=== PATIENT | female | born 1940 | race Caucasian/White ===

== ENCOUNTER 2022-02-12 14:18 | Outpatient (REF) | payer MEDICARE, OTHER, SELFPAY ==
[2022-02-12 14:47] LABS: MANUAL DIFF FLAG NO
[2022-02-12 14:55] LABS: Basophils Absolute Auto 0.1 X10*3/uL (0.0-0.2); Eosinophils Absolute Auto 0.2 X10*3/uL (0.0-0.4); Eosinophils Percent Auto 3.9 % (0-4); Hematocrit 36.3 % (37.0-47.0); Hemoglobin 12.1 g/dl (12.0-16.0); Imm Gran Abs Auto 0.01 X10*3/uL (0.00-0.03); Imm Gran Pct Auto 0.2 % (0.0-0.4); Lymphocytes Absolute Auto 1.1 X10*3/uL (1.2-4.9); Lymphocytes Percent Auto 22.5 % (20-40); Mean Corpuscular HGB Conc 33.3 g/dl (31.0-35.0); Mean Corpuscular Hemoglobin 29.9 pg (27.0-33.0); Mean Corpuscular Volume 89.6 fL (80.0-98.0); Mean Platelet Volume 11.2 fL (9.4-12.3); Monocytes Absolute Auto 0.4 X10*3/uL (0.1-1.2); Monocytes Percent Auto 8.5 % (2-11); Neutrophils Absolute Auto 3.1 x10*3/uL (2.0-8.3); Neutrophils Percent Auto 63.9 % (45-73); Platelet Count 216 X10*3/uL (160-400); Red Blood Count 4.05 X10*6/uL (4.20-5.50); Red Cell Distribution Width 13.9 % (11.0-16.0); White Blood Count 4.9 X10*3/uL (4.8-10.8)
[2022-02-12 15:34] LABS: Erythrocyte Sedimentation Rate 12 MM/HR (0-20)
[2022-02-18 14:57] LABS: Anti Nuclear Antibody Pattern Nuclear, Homogeneous; Anti Nuclear Antibody Screen POSITIVE (NEGATIVE)
[2022-03-04 22:26] LABS: Asperg fumigatus Precip Abs NEGATIVE (NEGATIVE); Micropoly faeni Abs NEGATIVE (NEGATIVE); Pigeon serum Abs NEGATIVE (NEGATIVE); Saccharo pora viridis Abs NEGATIVE (NEGATIVE); Thermo candidus Abs NEGATIVE (NEGATIVE); Thermoa vulgaris #1 NEGATIVE (NEGATIVE)
== END 2022-02-12 14:19 | disposition home or self-care (01) ==
LOC: HO.LAB 14:18
PROVIDERS: PCP Internal Medicine; Visit Provider Hospitalist
DX: R06.00 Dyspnea, unspecified (principal); J45.909 Unspecified asthma, uncomplicated; R91.8 Other nonspecific abnormal finding of lung field; R59.1 Generalized enlarged lymph nodes; J31.0 Chronic rhinitis
CPT/HCPCS: 36415; 82785; 85025; 85652; 86003; 86038; 86039; 86331; 86606; 86609; 99202

== ENCOUNTER → 2022-03-27 13:56 | Outpatient (BNVA) | payer MEDICARE, OTHER, SELFPAY | PROVIDERS: PCP Internal Medicine; Visit Provider Hospitalist | DX: R06.09 Other forms of dyspnea (principal); J45.20 Mild intermittent asthma, uncomplicated; R91.8 Other nonspecific abnormal finding of lung field; R59.1 Generalized enlarged lymph nodes; J84.10 Pulmonary fibrosis, unspecified | CPT/HCPCS: 99212 ==

== ENCOUNTER 2022-04-15 10:46 | Outpatient (REF) | payer MEDICARE, OTHER, SELFPAY ==
--- NOTE | ~2022-04-15 | CT_ITS ---
EXAMINATION: CT CHEST WITHOUT CONTRAST CLINICAL INFORMATION: Abnormal lung findings. COMPARISON: CT chest 12/26/2021. TECHNIQUE: Multidetector volumetric CT imaging of the chest was done. Axial MIP volume rendering provided. Sagittal and coronal reformatted images were obtained. This CT examination was performed using dose optimization techniques as appropriate, variously including the following: *Automated exposure control *Adjustment of mA and/or kV according to patient size (this includes techniques or standardized protocols for targeted exams where dose is matched to indication/reason for exam; i.e. extremities or head) *Use of iterative reconstruction technique DLP: 136 mGy-cm. FINDINGS: COUNSELING PROGRAM LEADER: Well-inflated lungs. LUNGS: The lungs are well expanded without any acute pneumonic consolidation. Previously visualized spiculated lesion in the right lower lobe is not visualized at this time. Ground-glass opacity seen in the right lower lobe have resolved. There are tiny endobronchial densities in upper lobes which are stable. Calcified granuloma right upper lobe is stable. A 2 mm nodule subpleural right lower lobe axial image 479/5 is stable. No new nodules visualized. MEDIASTINUM: Right thyroid lobe is enlarged with a hypodense nodule, stable. The left thyroid lobe is unremarkable. The trachea is slightly enlarged with normal tracheal and bronchial airway. Heart size and the great vessels are normal caliber. No pericardial effusion seen. Small shotty lymph nodes seen at the pretracheal space and aortic window. There appear benign. CORONARY ARTERY CALCIFICATION: Ofpj-jx-dquoaola coronary artery calcifications are present. PLEURA: There is no pleural effusion. No pleural mass or thickening. AXILLA: There are small shotty axillary lymph nodes. The chest wall appears unremarkable. UPPER ABDOMEN: There is a 1.9 cm simple cyst right hepatic lobe. The rest of the visualized liver, spleen, pancreas and bilateral adrenal glands are unremarkable. . OSSEOUS STRUCTURES: No aggressive lytic or sclerotic process seen. CT/CT chest wo IV con IMPRESSION: Interval resolution of spiculated lesion right lower lobe. Small endobronchial lesion in the upper lobes are stable. No new nodules seen. Prominent mediastinal and para-aortic lymph nodes are stable. Fleischner guidelines were followed.
== END 2022-04-15 10:47 | disposition home or self-care (01) ==
LOC: HO.CT 10:46
PROVIDERS: PCP Internal Medicine; Visit Provider Hospitalist
DX: R59.1 Generalized enlarged lymph nodes (principal); R91.8 Other nonspecific abnormal finding of lung field; J84.10 Pulmonary fibrosis, unspecified
CPT/HCPCS: 71250

== ENCOUNTER → 2022-06-04 10:48 | Outpatient (BNVA) | payer MEDICARE, OTHER, SELFPAY | PROVIDERS: PCP Internal Medicine; Visit Provider Hospitalist | DX: R06.09 Other forms of dyspnea (principal); J45.20 Mild intermittent asthma, uncomplicated; R91.8 Other nonspecific abnormal finding of lung field; R59.1 Generalized enlarged lymph nodes; J84.10 Pulmonary fibrosis, unspecified; G47.33 Obstructive sleep apnea (adult) (pediatric) | CPT/HCPCS: 99212 ==

== ENCOUNTER → 2022-06-11 10:49 | Outpatient (REF) | payer MEDICARE, OTHER, SELFPAY | LOC: HO.SL 10:49 | PROVIDERS: Visit Provider Hospitalist | DX: G47.33 Obstructive sleep apnea (adult) (pediatric) (principal) | CPT/HCPCS: 95806 ==

== ENCOUNTER → 2022-08-13 11:12 | Outpatient (BNVA) | payer MEDICARE, OTHER, SELFPAY | PROVIDERS: PCP Physician Assistant; Visit Provider Hospitalist | DX: J45.20 Mild intermittent asthma, uncomplicated (principal); R91.8 Other nonspecific abnormal finding of lung field; R06.09 Other forms of dyspnea; R59.1 Generalized enlarged lymph nodes; J84.10 Pulmonary fibrosis, unspecified; G47.33 Obstructive sleep apnea (adult) (pediatric); U07.1 COVID-19 | CPT/HCPCS: 99212 ==

== ENCOUNTER 2023-02-11 11:21 | Outpatient (AMB) | payer MEDICARE, OTHER, SELFPAY ==
[2023-02-11 11:25] VITALS: BP 134/70; PULSE 84; O2SAT 97; BMI 29.2
--- NOTE | 2023-02-11 11:25 | A.OFFVIS_ITS ---
Intake Vital Signs 02/11/23 11:25 Height 5 ft 3 in Weight 165 lb BMI 29.2 BP 134/70 Blood Pressure Location Lt brachial Position Sitting Pulse 84 Pulse Source Pulse Oximeter Pulse Oximetry (%) 97 Oxygen Delivery Method Room Air Intake Visit Reasons: BAUTISTA Manager Instrumentation Required: No Allergies ciprofloxacin [From Cipro] Adverse Reaction (Severe, Verified 02/11/23 11:28) Dizziness HPI HPI Comments History of Present Illness Details The patient is an 82-year-old woman with a known history of asthma and also a long history of symptoms of dyspnea. She does have dyspnea on exertion which is moderate severity. Typically worsens when she goes up 1 flight of stairs. She has had extensive workup throughout the years. She has had multiple inhalers as well to try to help with her asthma symptoms. As far as exposures he was exposed to significant amount of mold for. Her life. She has not had any recent allergy testing. In view of her significant dyspnea symptoms the patient did have a workup including CT scan of the chest that she had back in December 2021. I personally reviewed the CT scan demonstrating pulmonary nodules which appear to be inflammatory in nature primarily in the right lower lobe area. In addition to that some degree of lymphadenopathy also was noted in the mediastinum. No evidence of any significant parenchymal lung disease noted or interstitial lung disease to be concerned about or to be able to explain her symptoms. In view of the significant pulmonary nodule in the right lower lobe measuring more than 8 mm in size the patient did undergo a PET scan at [facility]. It appeared that does nodular densities resolve suggesting indeed that was inflammatory process. The patient did have an echocardiogram that was done at [facility]. There may have been some degree of relaxation impairment. During the visit we did go for brief walking oximetry. It was noted patient became significantly dyspneic when her heart rate increased to above 115. her pulse oximeter was stable throughout the ambulation. 03/27/2022 the patient is here for pulmonary follow-up visit. she is here with her daughter. The patient continues to have significant dyspnea with minimal activity. She has been concerned about doing any activity because of the symptoms. Based on her initial evaluation in her significant tachycardia we talked about having her undergo a stress test. We did reach out to her leisure studies professor. depending on that discussion we can always consider a cardiopulmonary exercise study to further address her ongoing symptoms. The patient's echocardiogram did demonstrate some diastolic dysfunction which I believe is playing a role. In addition to that the patient does have some the lying bibasilar scarring that may also may be resulting in some decrease lung compliance. Therefore, I do believe that her dyspnea symptoms may be multifactorial. The patient does have an underlying pulmonary nodule that it measures 8 mm in size in addition to the lymphadenopathy and the bibasilar scarring and therefore she should have a repeat CT scan 6 months from her last imaging study. In addition to that the patient does have underlying sleep apnea. We did review her sleep study. The patient did try CPAP and she did not tolerated whatsoever. Explained to her that indeed if she has evidence of cardiovascular risk factors then revisit in the sleep apnea condition be important in order to properly treat her cardiovascular risk and symptoms. 06/04/2022 the patient is here for a pulmonary follow-up visit. Patient has still the persistent issues with her dyspnea. Even minimal activity. Moderate severity. Although she does describe now that she she is more fatigued. She does complaint of the daytime drowsiness. She brought up the fact that she does have moderate sleep apnea and she could not tolerate the CPAP. She is wondering if she needs to give that another opportunity to see if her symptoms improved. She did follow-up with cardiology and she did undergo a nuclear stress test which is reassuring without any evidence of any ischemia or [employer] cardiac abnormalities to explain her shortness of breath. Again, pulmonary function studies also were reassuring. There also may be a component of deconditioning. The patient may be a good candidate for pulmonary rehabilitation. We also reviewed her CT scan of the chest it appears that she has interval resolution of her pulmonary density. This is reassuring. She has some minimal scarring at the bases but no evidence of any worsening disease. Her blood work was all reassuring as well. She did have a slight elevation the ROBB but her titer is low 1:80. at least compared to her previous CT scan there is no apparent worsening any interstitial lung disease at this time. The patient also complains of nasal congestion and allergies. She has tried fluticasone in the past without any significant help. Will go ahead and place her back some Zyrtec and also small dose of Singulair to make sure she can not tolerated. 08/13/2022 the patient is here for a pulmonary follow-up visit. The patient has been doing relatively well from a respiratory status. She does continue to have her dyspnea. She recently recovered from COVID-19. Fhcq-[id number] severity. The patient has underlying interstitial lung disease and now recovering from COVID. This is resulting the significant dyspnea symptoms. She has had a full cardiac workup which is been reassuring. The patient also is been having issues with sleep apnea. We did repeat her home sleep study in the patient does has a mild degree of sleep apnea. This could be treated with positional therapy as she has her significant apneas when she lays on her back. We talked about different positional therapy devices that she can consider in order for her to sleep on her sides the patient is encouraged about starting pulmonary rehabilitation. This will provide her with relief and conditioning of her ongoing dyspnea symptoms. Also, more recently she started developing significant knee pain. This has been very limiting for her. She did have an ultrasound ruling out DVT specially since he D-dimer was elevated. Her rheumatological workup was slightly abnormal and she is going to follow up with Rheumatology at this time. In the meantime since she is still recovering from COVID I will give her short course of prednisone that will probably help her respiratory status and also indirectly help her knee. 02/11/2023 the patient is here for pulmonary follow-up visit. Overall patient is doing a little better. Still having dyspnea on exertion. Mild to moderate in severity. She did go to a functional medicine specialist. She was diagnosed with chronic Lyme and also adrenal insufficiency. She is currently being evaluated and treated for that. In the meantime the patient has had a cardiac and pulmonary workup without any significant clarity for the symptoms of dyspnea. 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 Patient was supposed to start pulmonary rehab but then developed a knee injury and she could not started. Now she is doing better from the knee injury and do recommend she start the pulmonary rehab at this time. Will go ahead and request pulmonary rehab at [facility] as her preference. We did review her last CT scan of the chest which demonstrated interval improvement of the nodular density. Overall stable. Will talk about further imaging studies in the future. Right now she is also dealing with issues of dizziness. She is looking for the neurologist. 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 Pulmonary fibrosis Pulmonary nodules Social History (Updated 02/12/22 @ 13:36 by SONJA Gray) Patient Tobacco Use Status: Never used Tobacco Review of Systems Const Reports daytime sleepiness, Reports fatigue and Denies fever(s) Eyes Denies itchy eyes ENT Denies change in voice and Reports dizziness Card Denies chest pain and Reports dyspnea on exertion Resp Reports cough and Reports dyspnea on exertion GI Reports no additional complaints Musc Reports as per HPI, Reports abnormal gait, Reports arthralgias and Reports joint swelling Skin/Breast Denies rash Neuro Reports no additional complaints, Reports abnormal gait and Reports dizziness Endo Reports fatigue Aller/Immun Denies itchy eyes Physical Exam Vital Signs: Last Vital Signs Pulse 84 02/11/23 11:25 BP 134/70 02/11/23 11:25 Pulse Ox 97 02/11/23 11:25 Oxygen Delivery Method Room Air 02/11/23 11:25 BMI result Body Mass Index 29.2 Const General: comfortable HEENT Head: Yes normal to inspection Eyes General: appearance normal, both eyes and all related structures Neck Neck: Yes supple Chest Chest palpation & inspection: normal inspection of the chest Resp Effort & Inspection: normal respiratory effort Auscultation: no crackles and diminished lung sounds Cardio Rate: regular rate Rhythm: regular rhythm Heart sounds: S1 normal heart sound present and S2 normal heart sound present Extrem General: Yes no clubbing, cyanosis or edema Assessment & Plan Assessment & Plan (1) Dyspnea: Code(s): R06.00 - Dyspnea, unspecified Qualifiers: Dyspnea type: dyspnea on exertion Qualified Code(s): R06.09 - Other forms of dyspnea (2) Asthma: Code(s): J45.909 - Unspecified asthma, uncomplicated Qualifiers: Asthma complication type: uncomplicated Asthma persistence: intermittent Asthma severity: mild Qualified Code(s): J45.20 - Mild intermittent asthma, uncomplicated (3) Pulmonary nodules: Code(s): R91.8 - Other nonspecific abnormal finding of lung field (4) Lymphadenopathy: Code(s): R59.1 - Generalized enlarged lymph nodes (5) Pulmonary fibrosis: Code(s): J84.10 - Pulmonary fibrosis, unspecified (6) FARHAT (obstructive sleep apnea): Code(s): G47.33 - Obstructive sleep apnea (adult) (pediatric) (7) COVID-19: Code(s): U07.1 - COVID-19 Plan the patient's dyspnea symptoms appear to be multifactorial. The patient will benefit from pulmonary rehabilitation likely this have deconditioning. The patient will benefit from pulmonary rehabilitation. No evidence of any active cardiac disease at this time. It is reassuring that her pulmonary nodules resolved and the interstitial lung disease does not appear to be getting any worse. Recommendations: Start Pulmonary rehab at [facility] short-acting beta agonist as needed continue Singulair continue Zyrtec continue fluticasone positional sleep therapy for her sleep apnea bloodwork her consider imaging studies next year follow-up in 6 months Orders: Orders Cortisol, Free 02/11/23 R06.00 - Dyspnea, unspecified, R91.8 - Other nonspecific abnormal finding of lung field Erythrocyte Sedimentation Rate 02/11/23 R06.00 - Dyspnea, unspecified, R91.8 - Other nonspecific abnormal finding of lung field ROBB Reflex Titer and Pattern 02/11/23 R06.00 - Dyspnea, unspecified, R91.8 - Other nonspecific abnormal finding of lung field Anti DNA DS Antibody 02/11/23 R06.00 - Dyspnea, unspecified, R91.8 - Other nonspecific abnormal finding of lung field Pulmonary Rehab 02/11/23 J84.10 - Pulmonary fibrosis, unspecified, R06.00 - Dyspnea, unspecified, U09.9 - Post COVID-19 condition, unspecified Coding Level of Care Code Est Pt Level 4 (78281) Diagnoses Dyspnea R06.09 Dyspnea type: dyspnea on exertion Asthma J45.20 Asthma complication type: uncomplicated Asthma persistence: intermittent Asthma severity: mild Pulmonary nodules R91.8 Lymphadenopathy R59.1 Pulmonary fibrosis J84.10 FARHAT (obstructive sleep apnea) G47.33 COVID-19 U07.1 Time Spent (min) 19
== END 2023-02-11 11:51 | disposition home or self-care (01) ==
PROVIDERS: PCP Physician Assistant; Visit Provider Hospitalist
DX: R06.09 Other forms of dyspnea (principal); J45.20 Mild intermittent asthma, uncomplicated; R91.8 Other nonspecific abnormal finding of lung field; R59.1 Generalized enlarged lymph nodes; J84.10 Pulmonary fibrosis, unspecified; G47.33 Obstructive sleep apnea (adult) (pediatric); U07.1 COVID-19
CPT/HCPCS: 99214

== ENCOUNTER 2023-02-11 11:21 | Outpatient (REF) | payer MEDICARE, OTHER, SELFPAY ==
[2023-02-11 13:09] LABS: Erythrocyte Sedimentation Rate 13 MM/HR (0-20)
[2023-02-13 15:43] LABS: Anti DNA DS Antibody <1 IU/mL
[2023-02-19 15:54] LABS: Cortisol, Free 0.15 mcg/dL
[2023-02-19 17:28] LABS: Anti Nuclear Antibody Pattern Nuclear, Homogeneous; Anti Nuclear Antibody Screen POSITIVE (NEGATIVE)
== END 2023-02-11 11:22 | disposition home or self-care (01) ==
LOC: HO.LAB 11:21
PROVIDERS: PCP Physician Assistant; Visit Provider Hospitalist
DX: R06.09 Other forms of dyspnea (principal); J45.20 Mild intermittent asthma, uncomplicated; R91.8 Other nonspecific abnormal finding of lung field; R59.1 Generalized enlarged lymph nodes; J84.10 Pulmonary fibrosis, unspecified; G47.33 Obstructive sleep apnea (adult) (pediatric); U07.1 COVID-19
CPT/HCPCS: 36415; 82530; 85652; 86038; 86039; 86225; 99212

== ENCOUNTER 2023-08-13 13:04 | Outpatient (AMB) | payer MEDICARE, OTHER, SELFPAY ==
--- NOTE | 2023-08-13 13:09 | MHC.OFFVIS ---
Intake Vital Signs 08/13/23 13:15 Height 5 ft 3 in Weight 160 lb BMI 28.3 BP 130/70 Blood Pressure Location Lt brachial Position Sitting Pulse 72 Pulse Oximetry (%) 98 Intake Visit Reasons: BAUTISTA Allergies ciprofloxacin [From Cipro] Adverse Reaction (Severe, Verified 02/11/23 11:28) Dizziness HPI HPI Comments History of Present Illness Details The patient is an 83-year-old woman with a known history of asthma and also a long history of symptoms of dyspnea. She does have dyspnea on exertion which is moderate severity. Typically worsens when she goes up 1 flight of stairs. She has had extensive workup throughout the years. She has had multiple inhalers as well to try to help with her asthma symptoms. As far as exposures he was exposed to significant amount of mold for. Her life. She has not had any recent allergy testing. In view of her significant dyspnea symptoms the patient did have a workup including CT scan of the chest that she had back in December 2021. I personally reviewed the CT scan demonstrating pulmonary nodules which appear to be inflammatory in nature primarily in the right lower lobe area. In addition to that some degree of lymphadenopathy also was noted in the mediastinum. No evidence of any significant parenchymal lung disease noted or interstitial lung disease to be concerned about or to be able to explain her symptoms. In view of the significant pulmonary nodule in the right lower lobe measuring more than 8 mm in size the patient did undergo a PET scan at [facility]. It appeared that does nodular densities resolve suggesting indeed that was inflammatory process. The patient did have an echocardiogram that was done at [facility]. There may have been some degree of relaxation impairment. During the visit we did go for brief walking oximetry. It was noted patient became significantly dyspneic when her heart rate increased to above 115. her pulse oximeter was stable throughout the ambulation. 03/27/2022 the patient is here for pulmonary follow-up visit. she is here with her daughter. The patient continues to have significant dyspnea with minimal activity. She has been concerned about doing any activity because of the symptoms. Based on her initial evaluation in her significant tachycardia we talked about having her undergo a stress test. We did reach out to her statistical assistant. depending on that discussion we can always consider a cardiopulmonary exercise study to further address her ongoing symptoms. The patient's echocardiogram did demonstrate some diastolic dysfunction which I believe is playing a role. In addition to that the patient does have some the lying bibasilar scarring that may also may be resulting in some decrease lung compliance. Therefore, I do believe that her dyspnea symptoms may be multifactorial. The patient does have an underlying pulmonary nodule that it measures 8 mm in size in addition to the lymphadenopathy and the bibasilar scarring and therefore she should have a repeat CT scan 6 months from her last imaging study. In addition to that the patient does have underlying sleep apnea. We did review her sleep study. The patient did try CPAP and she did not tolerated whatsoever. Explained to her that indeed if she has evidence of cardiovascular risk factors then revisit in the sleep apnea condition be important in order to properly treat her cardiovascular risk and symptoms. 06/04/2022 the patient is here for a pulmonary follow-up visit. Patient has still the persistent issues with her dyspnea. Even minimal activity. Moderate severity. Although she does describe now that she she is more fatigued. She does complaint of the daytime drowsiness. She brought up the fact that she does have moderate sleep apnea and she could not tolerate the CPAP. She is wondering if she needs to give that another opportunity to see if her symptoms improved. She did follow-up with cardiology and she did undergo a nuclear stress test which is reassuring without any evidence of any ischemia or [employer] cardiac abnormalities to explain her shortness of breath. Again, pulmonary function studies also were reassuring. There also may be a component of deconditioning. The patient may be a good candidate for pulmonary rehabilitation. We also reviewed her CT scan of the chest it appears that she has interval resolution of her pulmonary density. This is reassuring. She has some minimal scarring at the bases but no evidence of any worsening disease. Her blood work was all reassuring as well. She did have a slight elevation the ROBB but her titer is low 1:80. at least compared to her previous CT scan there is no apparent worsening any interstitial lung disease at this time. The patient also complains of nasal congestion and allergies. She has tried fluticasone in the past without any significant help. Will go ahead and place her back some Zyrtec and also small dose of Singulair to make sure she can not tolerated. 08/13/2022 the patient is here for a pulmonary follow-up visit. The patient has been doing relatively well from a respiratory status. She does continue to have her dyspnea. She recently recovered from COVID-19. [id number] severity. The patient has underlying interstitial lung disease and now recovering from COVID. This is resulting the significant dyspnea symptoms. She has had a full cardiac workup which is been reassuring. The patient also is been having issues with sleep apnea. We did repeat her home sleep study in the patient does has a mild degree of sleep apnea. This could be treated with positional therapy as she has her significant apneas when she lays on her back. We talked about different positional therapy devices that she can consider in order for her to sleep on her sides the patient is encouraged about starting pulmonary rehabilitation. This will provide her with relief and conditioning of her ongoing dyspnea symptoms. Also, more recently she started developing significant knee pain. This has been very limiting for her. She did have an ultrasound ruling out DVT specially since he D-dimer was elevated. Her rheumatological workup was slightly abnormal and she is going to follow up with Rheumatology at this time. In the meantime since she is still recovering from COVID I will give her short course of prednisone that will probably help her respiratory status and also indirectly help her knee. 02/11/2023 the patient is here for pulmonary follow-up visit. Overall patient is doing a little better. Still having dyspnea on exertion. Mild to moderate in severity. She did go to a functional medicine specialist. She was diagnosed with chronic Lyme and also adrenal insufficiency. She is currently being evaluated and treated for that. In the meantime the patient has had a cardiac and pulmonary workup without any significant clarity for the symptoms of dyspnea. 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 Patient was supposed to start pulmonary rehab but then developed a knee injury and she could not started. Now she is doing better from the knee injury and do recommend she start the pulmonary rehab at this time. Will go ahead and request pulmonary rehab at [facility] as her preference. We did review her last CT scan of the chest which demonstrated interval improvement of the nodular density. Overall stable. Will talk about further imaging studies in the future. Right now she is also dealing with issues of dizziness. She is looking for the neurologist. 08/13/2023 the patient is here for a pulmonary follow-up visit. Overall the patient has been doing better overall. She has been participating in the pulmonary rehabilitation program and she is found that to be very helpful for her. She is continued to participate even after completing the week program. She is going twice a week now. The patient does have a hard time walking long distances because she does develop some back pain. She did have neck pain and back pain over the fall. She was evaluated [facility] at that point in did have a CTA. The patient did have some evidence of atelectasis although can not rule out pneumonitis/ILD. The patient is requesting inhaler to use. I do believe is a good idea for her to have 1. She also continues with respiratory medicine. I will provide her Dulera that she can start using. I did give him instructions on how to use it appropriately. The patient needs to rinse her mouth after she is she will use the inhaler for now she has any difficulties with it she will call the office. Otherwise she will follow-up in the fall of 2023. [facility] Medical History (Updated 08/14/23 @ 08:41 by Herrera Huang MD) ILD (interstitial lung disease) [id number] syndrome COVID-19 FARHAT (obstructive sleep apnea) Pulmonary fibrosis Lymphadenopathy Pulmonary nodules Dyspnea Asthma Social History (Updated 02/12/22 @ 13:36 by SONJA Gray) Patient Tobacco Use Status: Never used Tobacco Review of Systems Const Reports daytime sleepiness, Reports fatigue and Denies fever(s) Eyes Denies itchy eyes ENT Denies change in voice and Reports dizziness Card Denies chest pain and Reports dyspnea on exertion Resp Reports dyspnea on exertion GI Reports no additional complaints Musc Reports myalgias Skin/Breast Denies rash Neuro Reports no additional complaints and Reports dizziness Endo Reports fatigue Aller/Immun Denies itchy eyes Physical Exam Vital Signs: Last Vital Signs Pulse 72 08/13/23 13:15 BP 130/70 08/13/23 13:15 Pulse Ox 98 08/13/23 13:15 BMI result Body Mass Index 28.3 Const General: comfortable HEENT Head: Yes normal to inspection Eyes General: appearance normal, both eyes and all related structures Neck Neck: Yes supple Chest Chest palpation & inspection: normal inspection of the chest Resp Effort & Inspection: normal respiratory effort Auscultation: no crackles and diminished lung sounds Cardio Rate: regular rate Rhythm: regular rhythm Heart sounds: S1 normal heart sound present and S2 normal heart sound present Extrem General: Yes no clubbing, cyanosis or edema Assessment & Plan Assessment & Plan (1) Dyspnea: Code(s): R06.00 - Dyspnea, unspecified Qualifiers: Dyspnea type: dyspnea on exertion Qualified Code(s): R06.09 - Other forms of dyspnea (2) Asthma: Code(s): J45.909 - Unspecified asthma, uncomplicated Qualifiers: Asthma complication type: uncomplicated Asthma persistence: intermittent Asthma severity: mild Qualified Code(s): J45.20 - Mild intermittent asthma, uncomplicated (3) Pulmonary nodules: Code(s): R91.8 - Other nonspecific abnormal finding of lung field (4) FARHAT (obstructive sleep apnea): Code(s): G47.33 - Obstructive sleep apnea (adult) (pediatric) (5) ILD (interstitial lung disease): Comment: stable Code(s): J84.9 - Interstitial pulmonary disease, unspecified Plan Recommendations: start Dulera continue phase 3 Pulmonary rehab at [facility] short-acting beta agonist as needed continue Singulair continue Zyrtec continue fluticasone positional sleep therapy for her sleep apnea consider imaging studies next year follow-up in 6 months Medications: New mometasone-formoterol 200-5 mcg/actuation (Dulera) 2 puffs inhalation Q12H 30 days 13 grams 11RF Coding Level of Care Code Est Pt Level 4 (87458) Diagnoses Dyspnea on exertion R06.09 Dyspnea type: dyspnea on exertion Mild intermittent asthma without complication J45.20 Asthma complication type: uncomplicated Asthma persistence: intermittent Asthma severity: mild Pulmonary nodules R91.8 FARHAT (obstructive sleep apnea) G47.33 ILD (interstitial lung disease) J84.9 Time Spent (min) 19
[2023-08-13 13:15] VITALS: BP 130/70; PULSE 72; O2SAT 98; BMI 28.3
== END 2023-08-13 13:34 | disposition home or self-care (01) ==
PROVIDERS: PCP Physician Assistant; Visit Provider Hospitalist
DX: R06.09 Other forms of dyspnea (principal); J45.20 Mild intermittent asthma, uncomplicated; R91.8 Other nonspecific abnormal finding of lung field; G47.33 Obstructive sleep apnea (adult) (pediatric); J84.9 Interstitial pulmonary disease, unspecified
CPT/HCPCS: 99214

== ENCOUNTER → 2023-08-13 13:04 | Outpatient (BNVA) | payer MEDICARE, OTHER, SELFPAY | PROVIDERS: PCP Physician Assistant; Visit Provider Hospitalist | DX: J45.20 Mild intermittent asthma, uncomplicated (principal); R06.09 Other forms of dyspnea; R91.8 Other nonspecific abnormal finding of lung field; G47.33 Obstructive sleep apnea (adult) (pediatric); J84.9 Interstitial pulmonary disease, unspecified | CPT/HCPCS: 99212 ==

== ENCOUNTER 2024-03-09 09:28 | Outpatient (AMB) | payer MEDICARE, OTHER, SELFPAY ==
--- NOTE | 2024-03-09 09:29 | A.OFFVIS_ITS ---
Vital Signs 03/09/24 09:30 Height 5 ft 3 in Weight 157 lb 8 oz BMI 27.9 BP 140/72 H Blood Pressure Location Lt brachial Position Sitting Pulse 73 Pulse Source Pulse Oximeter Pulse Oximetry (%) 97 Oxygen Delivery Method Room Air Intake Visit Reasons: INcreased shortness of breath Allergies ciprofloxacin [From Cipro] Adverse Reaction (Severe, Verified 03/09/24 09:33) Dizziness HPI HPI INcreased shortness of breath: Details: Renée is a pleasant 83 year old female, never smoker, with underlying asthma, FARHAT not on CPAP, and ILD. She is under the care of Dr. Huang and presents for an acute visit. She reports more noticeable dyspnea on exertion with associated intermittent coughing spells . She was started on Dulera with moderate effect however she has only been using 2 puffs in the AM. She also is requesting a rescue inhaler. She denies any fevers, chills or sick contacts. [facility] Medical History (Updated 08/14/23 @ 08:41 by Herrera Huang MD) ILD (interstitial lung disease) [id number] syndrome COVID-19 FARHAT (obstructive sleep apnea) Pulmonary fibrosis Lymphadenopathy Pulmonary nodules Dyspnea Asthma Social History Patient Tobacco Use Status: Never used Tobacco Review of Systems Const Denies chills, Denies excessive sweating, Denies fever(s), Denies headache(s) and Denies night sweats Eyes Denies dry eyes, Denies irritation and Denies itchy eyes ENT Reports Normal hearing present, Denies headache(s), Denies nasal congestion, Denies nasal discharge, Denies post nasal drip and Denies sore throat Card Denies chest pain, Denies chest pain at rest, Denies chest pain with activity, Denies claudication, Denies leg edema, Denies orthopnea and Denies paroxysmal nocturnal dyspnea Resp Denies chest congestion, Denies excessive phlegm production, Denies pain on inspiration, Denies pain with cough, Denies stridor and Denies wheezing Musc Denies myalgias Neuro Reports Normal hearing present and Denies headache(s) Endo Denies excessive sweating Salvador/Lymph Denies lymphadenopathy Aller/Immun Denies itchy eyes, Denies seasonal rhinorrhea and Denies wheezing Physical Exam Vital Signs: Last Vital Signs Pulse 73 03/09/24 09:30 BP 140/72 H 03/09/24 09:30 Pulse Ox 97 03/09/24 09:30 Oxygen Delivery Method Room Air 03/09/24 09:30 BMI result Body Mass Index 27.9 Const General: cooperative, healthy appearing, comfortable, no acute distress, well developed and alert Orientation/consciousness: patient oriented x3 Limitations: no limitations HEENT Head: Yes normal to inspection, Yes normocephalic and Yes atraumatic Ears: hearing grossly normal bilaterally and external ears normal Eyes General: appearance normal, both eyes and all related structures Eyelids: Yes eyelids normal Sclerae: sclerae normal EOM: EOMs intact bilaterally Neck Neck: Yes normal visual inspection and Yes no lymphadenopathy Lymphatic: no lymphadenopathy noted Chest Chest palpation & inspection: normal inspection of the chest Resp Effort & Inspection: normal respiratory effort, able to speak in complete sentences, no audible wheezes, no cough, no stridor, not tachypneic, no tripod positioning and no use of accessory muscles Auscultation: clear to auscultation bilaterally Cardio Jugular venous distension: no JVD Rate: regular rate Rhythm: regular rhythm Skin Other: warm, dry General skin exam: no rashes or lesions noted Neuro General: patient oriented x3 Cranial nerves: Yes Normal hearing present Cognition (Neuro): normal cognition Gait exam (Neuro): Normal gait present Extrem General: Yes normal to inspection, Yes capillary refill normal, Yes no clubbing, cyanosis or edema and Yes no pedal edema Psych Appearance: grossly normal and well kempt Speech and movement: Normal speech and movement present and Clear speech present Affect: normal affect Attitude: cooperative Thought process: Normal thought process present Thought content: Normal thought content present Insight: Good insight present (Psych) Judgement: Good judgement present (Psych) Assessment & Plan Assessment & Plan (1) Asthma: Code(s): J45.909 - Unspecified asthma, uncomplicated Category: Medical Qualifiers: Asthma complication type: uncomplicated Asthma persistence: intermittent Asthma severity: mild Qualified Code(s): J45.20 - Mild intermittent asthma, uncomplicated (2) Dyspnea: Code(s): R06.00 - Dyspnea, unspecified Category: Medical Qualifiers: Dyspnea type: dyspnea on exertion Qualified Code(s): R06.09 - Other forms of dyspnea (3) ILD (interstitial lung disease): Comment: stable Code(s): J84.9 - Interstitial pulmonary disease, unspecified Category: Medical Plan Renée present with worsening dyspnea and dry cough. Advised to increase Dulera to 2 puffs b.i.d. and will send an albuterol to use p.r.n.. She is also requesting refill on Singulair, will send this. She is aware if symptoms do not improve to call office if worsened to seek emergent care. All questions were answered and patient is in agreement of plan. Will follow-up for regularly scheduled appointment with Dr. Huang, or sooner if needed. Medications: New montelukast 10 mg PO BEDTIME 30 tabs 1RF Coding Level of Care Code Est Pt Level 3 (78827) Diagnoses Mild intermittent asthma without complication J45.20 Asthma complication type: uncomplicated Asthma persistence: intermittent Asthma severity: mild Dyspnea on exertion R06.09 Dyspnea type: dyspnea on exertion ILD (interstitial lung disease) J84.9
[2024-03-09 09:30] VITALS: BP 140/72; PULSE 73; O2SAT 97; BMI 27.9
== END 2024-03-09 11:54 | disposition home or self-care (01) ==
PROVIDERS: PCP Physician Assistant; Visit Provider Nurse Practitioner Family
DX: J45.20 Mild intermittent asthma, uncomplicated (principal); R06.09 Other forms of dyspnea; J84.9 Interstitial pulmonary disease, unspecified
CPT/HCPCS: 99213

== ENCOUNTER → 2024-03-09 09:28 | Outpatient (BNVA) | payer MEDICARE, OTHER, SELFPAY | PROVIDERS: PCP Physician Assistant; Visit Provider Nurse Practitioner Family | DX: J45.20 Mild intermittent asthma, uncomplicated (principal); J84.9 Interstitial pulmonary disease, unspecified; R06.09 Other forms of dyspnea | CPT/HCPCS: 99212 ==

== ENCOUNTER 2024-04-14 12:40 | Outpatient (AMB) | payer MEDICARE, OTHER, SELFPAY ==
[2024-04-14 12:53] VITALS: BP 146/70; PULSE 67; O2SAT 98; BMI 27.5
--- NOTE | 2024-04-14 12:53 | MHC.OFFVIS ---
Vital Signs 04/14/24 12:53 Height 5 ft 3 in Weight 155 lb BMI 27.5 BP 146/70 H Blood Pressure Location Lt brachial Position Sitting Pulse 67 Pulse Source Pulse Oximeter Pulse Oximetry (%) 98 Oxygen Delivery Method Room Air Intake Visit Reasons: BAUTISTA Spark Tester Required: No Allergies ciprofloxacin [From Cipro] Adverse Reaction (Severe, Verified 04/14/24 12:56) Dizziness HPI Comments Details: The patient is an 83-year-old woman with a known history of asthma and also a long history of symptoms of dyspnea. She does have dyspnea on exertion which is moderate severity. Typically worsens when she goes up 1 flight of stairs. She has had extensive workup throughout the years. She has had multiple inhalers as well to try to help with her asthma symptoms. As far as exposures he was exposed to significant amount of mold for. Her life. She has not had any recent allergy testing. In view of her significant dyspnea symptoms the patient did have a workup including CT scan of the chest that she had back in December 2021. I personally reviewed the CT scan demonstrating pulmonary nodules which appear to be inflammatory in nature primarily in the right lower lobe area. In addition to that some degree of lymphadenopathy also was noted in the mediastinum. No evidence of any significant parenchymal lung disease noted or interstitial lung disease to be concerned about or to be able to explain her symptoms. In view of the significant pulmonary nodule in the right lower lobe measuring more than 8 mm in size the patient did undergo a PET scan at [facility]. It appeared that does nodular densities resolve suggesting indeed that was inflammatory process. The patient did have an echocardiogram that was done at [facility]. There may have been some degree of relaxation impairment. During the visit we did go for brief walking oximetry. It was noted patient became significantly dyspneic when her heart rate increased to above 115. her pulse oximeter was stable throughout the ambulation. 03/27/2022 the patient is here for pulmonary follow-up visit. she is here with her daughter. The patient continues to have significant dyspnea with minimal activity. She has been concerned about doing any activity because of the symptoms. Based on her initial evaluation in her significant tachycardia we talked about having her undergo a stress test. 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 depending on that discussion we can always consider a cardiopulmonary exercise study to further address her ongoing symptoms. The patient's echocardiogram did demonstrate some diastolic dysfunction which I believe is playing a role. In addition to that the patient does have some the lying bibasilar scarring that may also may be resulting in some decrease lung compliance. Therefore, I do believe that her dyspnea symptoms may be multifactorial. The patient does have an underlying pulmonary nodule that it measures 8 mm in size in addition to the lymphadenopathy and the bibasilar scarring and therefore she should have a repeat CT scan 6 months from her last imaging study. In addition to that the patient does have underlying sleep apnea. We did review her sleep study. The patient did try CPAP and she did not tolerated whatsoever. Explained to her that indeed if she has evidence of cardiovascular risk factors then revisit in the sleep apnea condition be important in order to properly treat her cardiovascular risk and symptoms. 06/04/2022 the patient is here for a pulmonary follow-up visit. Patient has still the persistent issues with her dyspnea. Even minimal activity. Moderate severity. Although she does describe now that she she is more fatigued. She does complaint of the daytime drowsiness. She brought up the fact that she does have moderate sleep apnea and she could not tolerate the CPAP. She is wondering if she needs to give that another opportunity to see if her symptoms improved. She did follow-up with cardiology and she did undergo a nuclear stress test which is reassuring without any evidence of any ischemia or [employer] cardiac abnormalities to explain her shortness of breath. Again, pulmonary function studies also were reassuring. There also may be a component of deconditioning. The patient may be a good candidate for pulmonary rehabilitation. We also reviewed her CT scan of the chest it appears that she has interval resolution of her pulmonary density. This is reassuring. She has some minimal scarring at the bases but no evidence of any worsening disease. Her blood work was all reassuring as well. She did have a slight elevation the ROBB but her titer is low 1:80. at least compared to her previous CT scan there is no apparent worsening any interstitial lung disease at this time. The patient also complains of nasal congestion and allergies. She has tried fluticasone in the past without any significant help. Will go ahead and place her back some Zyrtec and also small dose of Singulair to make sure she can not tolerated. 08/13/2022 the patient is here for a pulmonary follow-up visit. The patient has been doing relatively well from a respiratory status. She does continue to have her dyspnea. She recently recovered from COVID-19. [id number] severity. The patient has underlying interstitial lung disease and now recovering from COVID. This is resulting the significant dyspnea symptoms. She has had a full cardiac workup which is been reassuring. The patient also is been having issues with sleep apnea. We did repeat her home sleep study in the patient does has a mild degree of sleep apnea. This could be treated with positional therapy as she has her significant apneas when she lays on her back. We talked about different positional therapy devices that she can consider in order for her to sleep on her sides the patient is encouraged about starting pulmonary rehabilitation. This will provide her with relief and conditioning of her ongoing dyspnea symptoms. Also, more recently she started developing significant knee pain. This has been very limiting for her. She did have an ultrasound ruling out DVT specially since he D-dimer was elevated. Her rheumatological workup was slightly abnormal and she is going to follow up with Rheumatology at this time. In the meantime since she is still recovering from COVID I will give her short course of prednisone that will probably help her respiratory status and also indirectly help her knee. 02/11/2023 the patient is here for pulmonary follow-up visit. Overall patient is doing a little better. Still having dyspnea on exertion. Mild to moderate in severity. She did go to a functional medicine specialist. She was diagnosed with chronic Lyme and also adrenal insufficiency. She is currently being evaluated and treated for that. In the meantime the patient has had a cardiac and pulmonary workup without any significant clarity for the symptoms of dyspnea. 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 Patient was supposed to start pulmonary rehab but then developed a knee injury and she could not started. Now she is doing better from the knee injury and do recommend she start the pulmonary rehab at this time. Will go ahead and request pulmonary rehab at [facility] as her preference. We did review her last CT scan of the chest which demonstrated interval improvement of the nodular density. Overall stable. Will talk about further imaging studies in the future. Right now she is also dealing with issues of dizziness. She is looking for the neurologist. 08/13/2023 the patient is here for a pulmonary follow-up visit. Overall the patient has been doing better overall. She has been participating in the pulmonary rehabilitation program and she is found that to be very helpful for her. She is continued to participate even after completing the 8 week program. She is going twice a week now. The patient does have a hard time walking long distances because she does develop some back pain. She did have neck pain and back pain over the fall. She was evaluated [facility] at that point in did have a CTA. The patient did have some evidence of atelectasis although can not rule out pneumonitis/ILD. The patient is requesting inhaler to use. I do believe is a good idea for her to have 1. She also continues with respiratory medicine. I will provide her Dulera that she can start using. I did give him instructions on how to use it appropriately. The patient needs to rinse her mouth after she is she will use the inhaler for now she has any difficulties with it she will call the office. Otherwise she will follow-up in the fall of 2023. 04/14/2024 the patient is here for a pulmonary follow-up visit. The patient overall has been doing okay. She still complains of dyspnea on exertion. 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 She was going to be started on doxycycline. She did have a chest x-ray which we personally reviewed. She does have some degree of scoliosis. This potentially could be contributing to some degree. The patient will undergo repeat pulmonary function studies on her x-ray. In the meantime she is going to continue with current respiratory regimen. The patient does have episodes of waking up short of breath at nighttime. Will request an overnight oximetry to see if she benefits from any nocturnal oxygen supplementation. The patient follow-up in 3-4 months. If she has any issues prior to that she will call for an earlier assessment. PENDING SALE TO [facility] Medical History (Updated 08/14/23 @ 08:41 by Herrera Huang MD) ILD (interstitial lung disease) [id number] syndrome COVID-19 FARHAT (obstructive sleep apnea) Pulmonary fibrosis Lymphadenopathy Pulmonary nodules Dyspnea Asthma Social History Patient Tobacco Use Status: Never used Tobacco Review of Systems Const Reports daytime sleepiness, Reports fatigue and Denies fever(s) Eyes Denies itchy eyes ENT Denies change in voice and Reports dizziness Card Denies chest pain and Reports dyspnea on exertion Resp Reports dyspnea on exertion GI Reports no additional complaints Musc Reports myalgias Skin/Breast Denies rash Neuro Reports no additional complaints and Reports dizziness Endo Reports fatigue Aller/Immun Denies itchy eyes Physical Exam Vital Signs: Last Vital Signs Pulse 67 04/14/24 12:53 BP 146/70 H 04/14/24 12:53 Pulse Ox 98 04/14/24 12:53 Oxygen Delivery Method Room Air 04/14/24 12:53 BMI result Body Mass Index 27.5 Const General: comfortable HEENT Head: Yes normal to inspection Eyes General: appearance normal, both eyes and all related structures Neck Neck: Yes supple Chest Chest palpation & inspection: normal inspection of the chest Resp Effort & Inspection: normal respiratory effort Auscultation: no crackles and diminished lung sounds Cardio Rate: regular rate Rhythm: regular rhythm Heart sounds: S1 normal heart sound present and S2 normal heart sound present Extrem General: Yes no clubbing, cyanosis or edema Assessment & Plan Assessment & Plan (1) Dyspnea: Code(s): R06.00 - Dyspnea, unspecified Category: Medical Qualifiers: Dyspnea type: dyspnea on exertion Qualified Code(s): R06.09 - Other forms of dyspnea (2) Asthma: Code(s): J45.909 - Unspecified asthma, uncomplicated Category: Medical Qualifiers: Asthma complication type: uncomplicated Asthma persistence: intermittent Asthma severity: mild Qualified Code(s): J45.20 - Mild intermittent asthma, uncomplicated (3) Pulmonary nodules: Code(s): R91.8 - Other nonspecific abnormal finding of lung field Category: Medical (4) FARHAT (obstructive sleep apnea): Code(s): G47.33 - Obstructive sleep apnea (adult) (pediatric) Category: Medical (5) ILD (interstitial lung disease): Comment: stable Code(s): J84.9 - Interstitial pulmonary disease, unspecified Category: Medical Plan Recommendations: Dulera as needed continue phase 3 Pulmonary rehab [facility] short-acting beta agonist as needed continue Singulair continue Zyrtec continue fluticasone positional sleep therapy for her sleep apnea PFTs and CXR in 3 months overnight oximetry on RA follow-up in 4 months Orders: Orders XR chest 2V 3 Months J84.9 - Interstitial pulmonary disease, unspecified, U09.9 - Post COVID-19 condition, unspecified PFT pulmonary function test 3 Months J84.9 - Interstitial pulmonary disease, unspecified, U09.9 - Post COVID-19 condition, unspecified Overnight Pulse Oximetry Today J84.9 - Interstitial pulmonary disease, unspecified, R91.8 - Other nonspecific abnormal finding of lung field Coding Level of Care Code Est Pt Level 4 (70545) Diagnoses Dyspnea on exertion R06.09 Dyspnea type: dyspnea on exertion Mild intermittent asthma without complication J45.20 Asthma complication type: uncomplicated Asthma persistence: intermittent Asthma severity: mild Pulmonary nodules R91.8 FARHAT (obstructive sleep apnea) G47.33 ILD (interstitial lung disease) J84.9 Time Spent (min) 17
== END 2024-04-14 13:16 | disposition home or self-care (01) ==
PROVIDERS: PCP Physician Assistant; Visit Provider Hospitalist
DX: R06.09 Other forms of dyspnea (principal); J45.20 Mild intermittent asthma, uncomplicated; R91.8 Other nonspecific abnormal finding of lung field; G47.33 Obstructive sleep apnea (adult) (pediatric); J84.9 Interstitial pulmonary disease, unspecified
CPT/HCPCS: 99214

== ENCOUNTER → 2024-04-14 12:40 | Outpatient (BNVA) | payer MEDICARE, OTHER, SELFPAY | PROVIDERS: PCP Physician Assistant; Visit Provider Hospitalist | DX: J45.20 Mild intermittent asthma, uncomplicated (principal); J84.9 Interstitial pulmonary disease, unspecified; R19.8 Other specified symptoms and signs involving the digestive system and abdomen; U09.9 Post COVID-19 condition, unspecified; G47.33 Obstructive sleep apnea (adult) (pediatric); R06.09 Other forms of dyspnea; Z79.2 Long term (current) use of antibiotics | CPT/HCPCS: 99212 ==

== ENCOUNTER 2024-07-08 13:07 | Outpatient (REF) | payer MEDICARE, OTHER, SELFPAY ==
[2024-07-08 09:24] VITALS: PULSE 74; O2SAT 97
--- NOTE | 2024-07-08 13:10 | PFT_ITS ---
Indication: I LD Spirometry [FEV1 to FVC 76%; FEV1 2.37 L; FVC 3.1 L. no significant response to bronchodilators noted.] Lung Volumes [Total lung capacity 87% predicted; residual volume 42% predicted] Diffusion Capacity [DLCO 79% predicted] Comparisons [None] Interpretation [No obstructive nor restrictive ventilatory defects identified. No significant response to bronchodilators noted. Total capacity is within normal limits. The patient does have a mild diffusion impairment. Clinical correlation warranted.] MTDD
--- OUTSIDE RECORDS SUMMARY | 2024-07-08 14:40 | XMS_ITS | Data Portability ---
Author Organization [place] - [facility], Allergy Address [address] [address] Care Team Providers Care Frame Repairer Name Role Phone DEYANIRA STANFORD Primary Care Provider [phone] Assessment Encounter Date Assessment Date Assessment LastModified by Organization Details LastModified Time 06/01/2024 06/01/2024 06/01/2024 Patient is here as a previous patient to discuss new amplification. Her current Widex hearing aids are over 6 years old. She has a hearing aid benefit thru [employer]/ [employer]. Last year, she tried aids at [employer] for 6 months and then returned them as they didn't seem any better than the ones she had. I quoted pricing for Phonak Audeo Spheres. She had some difficulty deciding between the 90's or 70's but ultimately decided on the 90's. She understands that she has a 30 day (not 90) trial period and that there is a $200 charge, if returned. Speaker 1, brown aid , small open domes. R/s Nata Thornton MA [facility] tyler Not available 06/01/2024 16:41:18 06/14/2024 06/14/2024 06/14/2024 Again, patient here to start a trial with Phonak I 90 Spheres. unfortunately, the right aid isn't working. Instead of cancelling and rescheduling the flynn't, I decided to fit her with demos; same brand and model. Ran Verifit and programmed. Patient did fine with insertion and cleaning as she is an experienced user. SHE HAS THE LINOLEUM PRINTER AND INSTRUCTIONS THAT CAME WITH HER ORDER. Did not take payment today as she only has demo's. R/S next week to trade demos for her own aids. Nata Parkliliana HIDALGO CCC-A katianishioli Not available 06/14/2024 15:38:24 06/22/2024 06/22/2024 06/22/2024 2 week check on trial with hearing aids. She is using a pair of our demo's as one of hers didn't work at the time of the fitting. As amazing as it may seem, I then ordered the wrong aid as a replacement so when I went to fit with her own aids, I could not. So...she still has the demos; the wrong aid has been returned and a new one has been ordered. Conducted Verifit today and tweaked aids. She still has difficulty especially in background noise. We discussed realistic expectations again and I also talked about Jonny which she wasn't interested in trying. Patient does have fibromyalgia and Lyme Disease which might be a contributing factor ie possible processing issues. Patient to continue and has been rescheduled for 2 weeks. Nata Saucedodukevalentín HIDALGO [facility] katianishioli Not available 06/22/2024 16:47:24 07/05/2024 07/05/2024 07-05-2024 Still not doing great and not especially happy with them. She thinks she hears better with her old aids although she did admit that she misses a lot with her old aids, too. I ended up running her old aids on Verifit which showed her to be over amplified but it is what she's used to, with low compression ratios. I ended up matching the response with the new aids to the old aids. That's when she stated she misses a lot of speech even with the old aids. So....I did reduced the lows thinking of the upward spread of masking, but I left the mids and highs and kept the low compression ratios. R/S for nect week. Nata Saucedogeronimo HIDALGO [facility] [email or web address] Not available 07/05/2024 13:32:28 Plan of Treatment Reminders Order Date Submit Date Provider Last Modified By Organization Details Last Modified Time Details Appointments [facility] Fitting Follow Up (60) 2024 12:00P M [facility] Not available Not available Not available [facility] Flexible Appointme nt 2024 10:00A M [facility] Not available Not available Not available Lab None recorded. Referral None recorded. Procedures None recorded. Surgeries None recorded. Imaging None recorded. Medication Orders None recorded. Patient TargetsNo targets recorded. Patient InstructionsNo instructions recorded. Reason for Referral None Reported. Results Created Date Observation Date Name Description Value Unit Range Abnormal Flag Note LastModifiedBy Organization Detail LastModifiedTime 05/12/20 24 04/01/2024 CT, angio gram, chest , w/o contr ast No observ ation record ed. [email or web address] Not Available 22:07:45 05/12/20 24 04/02/2023 CT, head + brain , w/o contr ast No observ ation record ed. [email or web address] Not Available 22:07:45 05/13/20 audio gram No observ ation record ed. BARCODE Not Available 2023 15:24:15 Result Notes None recorded. Problems Name Problem SNOMED Code Status Onset Date Resolution Date Notes Provider Name and Address Organization Details Recorded Time Benign paroxysma l positiona l vertigo 138174077 Active 2018 Benign paroxysma l vertigo, right ear; Note: Date Diagnosed : 07/23/2018 4:07 PM (H81.11) [facility] Available [facility] 03[facility]01 Dizziness and giddiness 032845093 Active 2018 Dizziness and giddiness ; Note: Date Diagnosed : 07/23/2018 3:40 PM (R42) Not Available [facility] 03[facility]02 Sensorine ural hearing loss of bilateral ears 910403914 Active 2015 Sensorine ural HL, bilateral ; Note: Date Diagnosed : 05/12/2014 3:16 PM (389.18) ; Start Date : 4 Sensori neural hearing loss, bilateral ; Note: Date Diagnosed : 11/20/2015 12:02 PM (H90.3) Not Available [facility] 4 03:20:01 Essential hypertens ion 78386188 Active 2018 Essential (primary) hypertens ion; Note: Date Diagnosed : 07/23/2018 4:07 PM (I10) Not Available [facility] 4 03:20:02 Impacted cerumen in right ear 95284083880 10888 Active 2015 Impacted cerumen, right ear; Note: Date Diagnosed : 6 4:31 PM (H61.21) Not Available [facility] 4 03:20:02 Finding of sensation of musculosk eletal structure of neck 919747727 Active 2023 CARLOS JC MD 100 [facility],[place] [address], [place], [address] , [facility] - [facility] 4 10:25:55 Problem Notes None recorded. Procedures Surgical History Date Name Laterality Status Provider Name and Address Organization Details Recorded Time 05/11/20 24 Comp Audio with Tymps (71310 & 62003) completed NATA THORNTON MA, CCC-A 100 [facility],[place] [address], [place], [address], [place] - [facility] 05/11/2024 09:55:22 thyroidectomy completed Keven Mandujano [place] - [facility] 05/11/2024 10:17:41 hernia repair completed Keven Mandujano [place] - [facility] 05/11/2024 10:17:51 Kidney Stone Removal completed [facility] [place] - [facility] 05/11/2024 10:18:02 Imaging Results Imaging Date Name Status LastModified by Organiz ation Details LastModified Time 04/01/2024 CT, angiogram, chest, w/o contrast completed Information not available 05/12/2024 22:07:45 04/02/2023 CT, head + brain, w/o contrast completed Information not available 05/12/2024 22:07:45 05/13/2024 audiogram completed BARCODE Information no t available 05/13/2024 15:24:15 Procedure Notes None recorded. Medical Equipment None Reported. Medications Name Sig Start Date Stop Date Status Note LastModified by Organization Details LastModified Time latanopro st 0.005 % eye drops INSTILL 1 DROP INTO BOTH EYES EVERY EVENING DIRECTED active Not Available Not Available No t Available valsartan 80 mg tablet TAKE 1 TABLET BY MOUTH EVERY DAY active Not Available Not Available No t Available Antelope Thyroid 15 mg tablet 2015 active Medicati on ID: [id number] D uration Value: 30 Brand Name: Betty Thyroid Send Method: E-Prescr ibed Sub s Allowed: subs OK Medic ationGen ericName : Antelope Thyroid Not Available Not Available Not Available meclizine 25 mg tablet active Not Available Not Available Not Available verapamil ER (PM) 100 mg capsule 24hr pellet CT,ext.re lease TAKE 1 CAPSULE BY MOUTH EVERY DAY FOR 90 DAYS active Not Available Not Available No t Available vitamin B complex tablet 2015 active Medicati on ID: [id number] B rand Name: vitamin B complex Send Method: E-Prescr ibed Sub s Allowed: subs OK Medic ationGen ericName : vitamin B complex Not Available Not Available Not Available monteluka st 10 mg tablet TAKE 1 TABLET BY MOUTH AT BEDTIME active Not Available Not Available No t Available Betty Thyroid 30 mg tablet TAKE 1 TABLET BY MOUTH EVERY DAY FOR 90 DAYS active Not Available Not Available No t Available estradiol 0.01% (0.1 mg/gram) vaginal cream INSERT 1 GRAM VAGINALL Y TWICE WEEKLY active Not Available Not Available No t Available verapamil 80 mg tablet 05/11 completed Medicati on ID: [id number] D uration Value: 90 Brand Name: henrymi l Send Method: E-Prescr ibed Sub s Allowed: subs OK Medic ationGen ericName : verapami l Not Available Not Available Not Available Vitamin C 500 mg capsule,e xtended release 2015 active Medicati on ID: [id number] B rand Name: Vitamin C Send Method: E-Prescr ibed Sub s Allowed: subs OK Medic ationGen ericName : Vitamin C Not Available Not Available Not Available Creon 24,000-76 ,000-120, 000 unit capsule,d elayed release TAKE TAKE 2 CAPSULES BY MOUTH BEFORE MEALS AND SNACKS active Not Available Not Available No t Available Dulera 200 mcg-5 mcg/actua tion HFA aerosol inhaler INHALE 2 PUFF INHALED EVERY 12 HOURS FOR 30 DAYS active Not Available Not Available No t Available Creon 36,000 unit-114, 000 unit-180, 000 unit capsule,d elayed release TAKE 2 CAPSULES BY MOUTH BEFORE MEALS AND SNACKS FIVE TIMES A DAY active Not Available Not Available No t Available doxycycli ne hyclate 200 mg tablet,de layed release TAKE 1 TABLET BY MOUTH EVERY DAY active Not Available Not Available No t Available Vitals None Recorded Social History None recorded. Functional Status None recorded. Mental Status None recorded. Family History Nothing Reported. Medical History No medical history recorded. Gynecological HistoryNo gynecological history recorded. Obstetrics History GPAL:G 0 P 0 0 0 0 Past Encounters Encounter ID Performer Location Encounter Start Date Encounter Closed Date Diagnosis/Indication Diagnosis SNOMED-CT Code Diagnosis ICD10 Code [id number] CARLOS JC MD [facility] [address] [address] 05/11/2024 09:14:43 05/11/2024 10:29:46 Finding of sensation of musculoskeletal structure of neck 596283107 M54.2 Sensorineu ral hearing loss of bilateral ears 598343251 H90.3 [id number] NATA THORNTON MA, CCC-A [facility] [address] [address] 05/11/2024 09:14:43 05/11/2024 10:29:46 Sensorineural hearing loss of bilateral ears 315553631 H90.3 [id number] NATA THORNTON MA, CCC-A [facility] [place] [address] [place] [address] 06/01/2024 12:45:59 06/03/2024 07:30:04 Sensorineural hearing loss of bilateral ears 890689021 H90.3 [id number] NATA THORNTON MA, CCC-A [facility] [place] [address] [place] [address] 06/14/2024 12:46:07 06/15/2024 07:47:41 Sensorineural hearing loss of bilateral ears 751700569 H90.3 [id number] NATA THORNTON MA, CCC-A [facility] - [place] [address] [place] [address] 06/22/2024 10:59:33 06/23/2024 07:27:18 Sensorineural hearing loss of bilateral ears 555982434 H90.3 [id number] NATA THORNTON MA, CCC-A [facility] - [facility] [address] [place] [address] 07/05/2024 11:55:04 07/07/2024 11:39:54 Sensorineural hearing loss of bilateral ears 903713222 H90.3 Health Concerns Section Related Observation LastModified by Organization Detai ls LastModified Time None Recorded Concern Status LastModified by Organization Details LastModified Time None Recorded Advance Directives Directive None Recorded Payers Encounter Date Sequence Insurance Name Policy Number Policy Flynn Covered Member ID Flynn Member ID Guarantor Name 05/11/2024 1 [place] [employer] Renée C Blad [id number] 3 Renée C Blad 05/11/2024 2 [employer] - SENIOR SERVICES PLAN F (MEDICARE SUPPLEMENT) [id number] Renée C Blad [id number] Renée C Blad 06/01/2024 1 [place] [employer] Renée C Blad [id number] Renée C Blad 06/01/2024 2 [employer] - SENIOR SERVICES PLAN F (MEDICARE SUPPLEMENT) [id number] Renée C Blad [id number] Renée C Blad 06/14/2024 1 [place] [employer] Renée C Blad [id number] Renée C Blad 06/14/2024 2 [employer] - SENIOR SERVICES PLAN F (MEDICARE SUPPLEMENT) [id number] Renée C Blad [id number] Renée C Blad 06/22/2024 1 [place] [employer] Renée C Blad [id number] Renée C Blad 06/22/2024 2 [employer] - SENIOR SERVICES PLAN F (MEDICARE SUPPLEMENT) [id number] Renée C Blad [id number] Renée C Blad 07/05/2024 1 [place] [employer] Renée C Blad [id number] Renée C Blad 07/05/2024 2 [employer] - SENIOR SERVICES PLAN F (MEDICARE SUPPLEMENT) [id number] Renée C Blad [id number] Renée C Blad Notes Date Note Type Note Provider Name and Address Organization Details Recorded Time 05/11/2024 text/html Several years pa in in posterior cervical muscles to occiputNotes HL.--aids from [employer] doxycycline on Lyme co-infectionsPain in occiput region radiating to scalp. No vertigoPrior imaging normal CARLOS GALARZA MD [address] [place] [address], [place], [address], [place] - [facility] 05/11/2024 10:27:57 OBGyn Episode No OBEpisode recorded.
--- OUTSIDE RECORDS SUMMARY | 2024-07-08 14:40 | XMS_ITS | Continuity of Care Document ---
Author Organization [place] - [facility] - [place] Address [address] [address] Care Team Providers Care Wool Hat Forming Machine Tender Name Role Phone DEYANIRA STANFORD Primary Care Provider [phone] Assessment Encounter Date Assessment Date Assessment LastModified by Organization Details LastModified Time 06/14/2024 06/14/2024 06/14/2024 Again, patient here to start a trial with Phonak I 90 Spheres. unfortunately, the right aid isn't working. Instead of cancelling and rescheduling the flynn't, I decided to fit her with demos; same brand and model. Ran Verifit and programmed. Patient did fine with insertion and cleaning as she is an experienced user. SHE HAS THE SWATCH CLERK AND INSTRUCTIONS THAT CAME WITH HER ORDER. Did not take payment today as she only has demo's. R/S next week to trade demos for her own aids. Nata Thornton MA [facility] tyler Not available 06/14/2024 15:38:24 Plan of Treatment Reminders Order Date Submit Date Provider Last Modified By Organization Details Last Modified Time Details Appointments [facility] Fitting Follow Up (60) 2024 12:00P [facility] Not available Not available Not available [facility] Flexible Appointme nt 2024 10:00A [facility] Not available Not available Not available Lab None recorded. Referral None recorded. Procedures None recorded. Surgeries None recorded. Imaging None recorded. Medication Orders None recorded. Patient TargetsNo targets recorded. Patient InstructionsNo instructions recorded. Reason for Referral None Reported. Problems Name Problem SNOMED Code Status Onset Date Resolution Date Notes Provider Name and Address Organization Details Recorded Time Benign paroxysma l positiona l vertigo 281906081 Active 2018 Benign paroxysma l vertigo, right ear; Note: Date Diagnosed : 07/23/2018 4:07 PM (H81.11) Not Available [facility] 4 03:20:01 Dizziness and giddiness 084615741 Active 2018 Dizziness and giddiness ; Note: Date Diagnosed : 07/23/2018 3:40 PM (R42) Not Available [facility] 4 03:20:02 Sensorine ural hearing loss of bilateral ears 828610355 Active 2015 Sensorine ural HL, bilateral ; Note: Date Diagnosed : 05/12/2014 3:16 PM (389.18) ; Start Date : 4 Sensori neural hearing loss, bilateral ; Note: Date Diagnosed : 11/20/2015 12:02 PM (H90.3) Not Available [facility] 4 03:20:01 Essential hypertens ion 86309123 Active 2018 Essential (primary) hypertens ion; Note: Date Diagnosed : 07/23/2018 4:07 PM (I10) Not Available [facility] 4 03:20:02 Impacted cerumen in right ear 21853367875 05975 Active 2015 Impacted cerumen, right ear; Note: Date Diagnosed : 6 4:31 PM (H61.21) Not Available [facility] 4 03:20:02 Finding of sensation of musculosk eletal structure of neck 831016364 Active 2023 CARLOS JC MD [address] [place] [address], [place], [address] , [facility] - [facility] 4 10:25:55 Problem Notes None recorded. Procedures Surgical History Date Name Laterality Status Provider Name and Address Organization Details Recorded Time 05/11/20 24 Comp Audio with Tymps (85401 & 26403) completed NATA THORNTON MA, CCC-A [address] [place] [address],[place] [address], [place], [address], [facility] - [facility] 05/11/2024 09:55:22 thyroidectomy completed [facility] - [facility] 05/11/2024 10:17:41 hernia repair completed [facility] - [facility] 05/11/2024 10:17:51 Kidney Stone Removal completed [facility] 05/11/2024 10:18:02 Imaging Results None recorded. Procedure Notes None recorded. Medical Equipment None [...] Not Available Not Available No t Available Dav[place] Thyroid 15 mg tablet 2015 active Medicati on ID: [id number] D uration Value: 30 Brand Name: [place] Thyroid Send Method: E-Prescr ibed Sub s Allowed: subs OK Medic ationGen ericName : [place] Thyroid Not Available Not Available Not Available meclizine 25 mg tablet active Not Available Not Available Not Available verapamil ER (PM) 100 mg capsule 24hr pellet CT,ext.re lease TAKE 1 CAPSULE BY MOUTH EVERY DAY FOR 90 DAYS active Not Available Not Available No t Available vitamin B complex tablet 2015 active Medicati on ID: [id number] B rand Name: vitamin B complex Send [...] mg tablet 05/11 completed Medicati on ID: [id number] D uration Value: 90 Brand Name: verapami l Send Method: E-Prescr ibed Sub s Allowed: subs OK Medic ationGen ericName : verapami l Not Available Not Available Not Available Vitamin C 500 mg capsule,e xtended release 2015 active Medicati on ID: [id number] B rand Name: Vitamin C Send Method: [...] Diagnosis/Indication Diagnosis SNOMED-CT Code Diagnosis ICD10 Code [id number] NATA THORNTON MA, CCC-A [facility] [place] [address] [place] [address] 06/01/2024 12:45:59 06/03/2024 07:30:04 Sensorineural hearing loss of bilateral ears 555935145 H90.3 [id number] NATA THORNTON MA, CCC-A [facility] [place] [address] [place] [address] 06/14/2024 12:46:07 06/15/2024 07:47:41 Sensorineural hearing loss of bilateral ears 357660113 H90.3 Health Concerns Section Related Observation LastModified by Organization Detai ls LastModified Time None Recorded Concern Status LastModified by Organization Details LastModified Time None Recorded Payers Encounter Date Sequence Insurance Name Policy Number Policy Flynn Covered Member ID Flynn Member ID Guarantor Name 06/14/2024 1 [place]: [employer] Renée Paris [id number] 3 Renée Paris 06/14/2024 2 [facility] PLAN F (MEDICARE SUPPLEMENT) [id number] Renée Paris [id number] Renée Paris OBGyn Episode No OBEpisode recorded.
--- OUTSIDE RECORDS SUMMARY | 2024-07-08 14:40 | XMS_ITS | Continuity of Care Document ---
Author Organization [place] - [facility] Address [address] [place] [address] Care Team Providers Care Concrete Hopper Operator Name Role Phone DEYANIRA STANFORD Primary Care Provider [phone] Assessment Encounter Date Assessment Date Assessment LastModified by Organization Details LastModified Time 06/22/2024 06/22/2024 06/22/2024 2 week check on [...] has been rescheduled for 2 weeks. Nata Thornton MA [facility] [email or web address] Not available 06/22/2024 16:47:24 Plan of Treatment Reminders Order Date Submit [...] Time Benign paroxysma l positiona l vertigo 249290760 Active 2018 Benign paroxysma l vertigo, right ear; Note: Date Diagnosed : 07/23/2018 4:07 PM (H81.11) Not Available [facility] 4 03:20:01 Dizziness and giddiness 085087482 Active 2018 Dizziness and giddiness ; Note: Date Diagnosed : 07/23/2018 3:40 PM (R42) Not Available [facility] 4 03:20:02 Sensorine ural hearing loss of bilateral ears 508278610 Active 2015 Sensorine ural HL, bilateral ; Note: Date Diagnosed : 05/12/2014 3:16 PM (389.18) ; Start Date : 4 Sensori neural hearing loss, bilateral ; Note: Date Diagnosed : 11/20/2015 12:02 PM (H90.3) Not Available [facility] 4 03:20:01 Essential hypertens ion 24621077 Active 2018 Essential (primary) hypertens ion; Note: Date Diagnosed : 07/23/2018 4:07 PM (I10) Not Available [facility] 4 03:20:02 Impacted cerumen in right ear 42814590433 59591 Active 2015 Impacted cerumen, right ear; Note: Date Diagnosed : 6 4:31 PM (H61.21) Not Available [facility] 4 03:20:02 Finding of sensation of musculosk eletal structure of neck 182158016 Active 2023 CARLOS JC MD [address] [place] [address], [place], [address] , [facility] - [facility] 4 10:25:55 Problem Notes None recorded. Procedures Surgical History Date Name Laterality Status Provider Name and Address Organization Details Recorded Time 05/11/20 24 Comp Audio with Tymps (53473 & 97299) completed NATA THORNTON MA, CCC-A 100 [facility],[place] [address], [place], [address], [place] - [facility] 05/11/2024 09:55:22 thyroidectomy completed Keven Mandujano [place] - [facility] 05/11/2024 10:17:41 hernia repair completed Keven Mandujano [facility] 05/11/2024 10:17:51 Kidney Stone Removal completed Kevenzhao Mandujano [place] - [facility] 05/11/2024 10:18:02 Imaging Results None recorded. [...] Not Available Not Available No t Available [place] Thyroid 15 mg tablet 2015 active Medicati on ID: [id number] D uration Value: 30 Brand Name: [place] Thyroid Send Method: E-Prescr ibed Sub s Allowed: subs OK Medic ationGen ericName : [place] Thyroid Not Available Not Available Not Available meclizine 25 mg tablet active Not Available Not Available Not Available verapamil ER (PM) 100 mg capsule 24hr pellet CT,ext.re lease TAKE 1 CAPSULE BY MOUTH EVERY DAY FOR 90 DAYS active Not Available Not Available No t Available vitamin B complex tablet 2015 active Medicati on ID: [id number] B rand Name: vitamin B complex Send Method: E-Prescr ibed Sub s Allowed: subs OK Medic ationGen ericName : vitamin B complex Not Available Not Available Not Available monteluka st 10 mg tablet TAKE 1 TABLET BY MOUTH AT BEDTIME active Not Available Not Available No t Available [place] Thyroid 30 mg tablet TAKE 1 TABLET BY MOUTH EVERY DAY FOR 90 DAYS active Not Available Not Available No t Available estradiol 0.01% (0.1 mg/gram) vaginal cream INSERT 1 GRAM VAGINALL Y TWICE WEEKLY active Not Available Not Available No t Available verapamil 80 mg tablet 05/11 completed Medicati on ID: [id number] D uration Value: 90 Brand Name: verapami l Send Method: E-Prescr ibed Sub s Allowed: subs OK Medic ationGen ericName : verapami l Not Available Not Available Not Available Vitamin C 500 mg capsule,e xtended release 2015 active Medicati on ID: [id number] Kendall rand Name: Vitamin C Send Method: E-Prescr [...] Diagnosis/Indication Diagnosis SNOMED-CT Code Diagnosis ICD10 Code [id number] NATA THORNTON [place], CYDNEY-A [facility] [place] [address] [place] [address] [place] [address] 06/01/2024 12:45:59 06/03/2024 07:30:04 Sensorineural hearing loss of bilateral ears [id number] H90.3 [id number] NATA THORNTON [place], CYDNEY-Zhao [facility] [place] [address] [place] [address] [place] [address] 06/14/2024 12:46:07 06/15/2024 07:47:41 Sensorineural hearing loss of bilateral ears 241548417 H90.3 [id number] NATA THORNTON [place], CCC-Zhao [facility] [place] [address] [place] [address] 06/22/2024 10:59:33 06/23/2024 07:27:18 Sensorineural hearing loss of bilateral ears 714500766 H90.3 Health Concerns Section Related Observation LastModified by Organization Detai ls LastModified Time None Recorded Concern Status LastModified by Organization Details LastModified Time None Recorded Payers Encounter Date Sequence Insurance Name Policy Number Policy Flynn Covered Member ID Flynn Member ID Guarantor Name 06/22/2024 1 [place]IC[place] B-[place]: [employer] Renée Paris [id number] 3 Renée Paris 06/22/2024 2 [facility] - SENIOR SERVICES PLAN F (MEDICARE SUPPLEMENT) [id number] Renée Paris [id number] Renée Paris OBGyn Episode No OBEpisode recorded.
--- OUTSIDE RECORDS SUMMARY | 2024-07-08 14:40 | XMS_ITS | Continuity of Care Document ---
Author Organization [place] - [facility] Address [address] [place] [address] Care Team Providers Care Alining Inspector Name Role Phone DEYANIRA STANFORD Primary Care Provider Assessment Encounter Date Assessment Date Assessment LastModified by Organization Details LastModified Time 07/05/2024 07/05/2024 07-05-2024 Still not doing great [...] compression ratios. R/S for nect week. Nata Thornton MA [facility] tyelr Not available 07/05/2024 13:32:28 Plan of Treatment [...] Time Benign paroxysma l positiona l vertigo 742024816 Active 2018 Benign paroxysma l vertigo, right ear; Note: Date Diagnosed : 07/23/2018 4:07 PM (H81.11) Not Available [facility] 4 03:20:01 Dizziness and giddiness 539223069 Active 2018 Dizziness and giddiness ; Note: Date Diagnosed : 07/23/2018 3:40 PM (R42) Not Available [facility] 4 03:20:02 Sensorine ural hearing loss of bilateral ears 083142112 Active 2015 Sensorine ural HL, bilateral ; Note: Date Diagnosed : 05/12/2014 3:16 PM (389.18) ; Start Date : 4 Sensori neural hearing loss, bilateral ; Note: Date Diagnosed : 11/20/2015 12:02 PM (H90.3) Not Available [facility] 4 03:20:01 Essential hypertens ion 80973562 Active 2018 Essential (primary) hypertens ion; Note: Date Diagnosed : 07/23/2018 4:07 PM (I10) Not Available [facility] 4 03:20:02 Impacted cerumen in right ear 48505032550 23725 Active 2015 Impacted cerumen, right ear; Note: Date Diagnosed : 6 4:31 PM (H61.21) Not Available [facility] 4 03:20:02 Finding of sensation of musculosk eletal structure of neck 602291105 Active 2023 CARLOS JC MD [address] [place] [address],[place] [address], [place], [address] , [facility] - [facility] 4 10:25:55 Problem Notes None recorded. Procedures Surgical History Date Name Laterality Status Provider Name and Address Organization Details Recorded Time 05/11/20 24 Comp Audio with Tymps (61994 & 63926) completed NATA THORNTON MA, CCC-A [address] [facility],[place] [address], [place], [address], [place] - [facility] 05/11/2024 09:55:22 thyroidectomy completed Keven Mandujano [place] - [facility] 05/11/2024 10:17:41 hernia repair completed Keven Mandujano [place] - [facility] 05/11/2024 10:17:51 Kidney Stone Removal completed [facility] - [facility] 05/11/2024 10:18:02 Imaging Results None recorded. [...] Not Available Not Available No t Available [place] Thyroid 15 mg tablet 2015 active Medicati on ID: [id number] D uration Value: 30 Brand Name: [place] Thyroid Send Method: E-Prescr ibed Sub s Allowed: subs OK Medic ationGen ericName : [place] Thyroid Not Available Not Available Not Available meclizine 25 mg tablet active Not Available Not Available Not Available verapamil ER (PM) 100 mg capsule 24hr pellet CT,ext.re lease TAKE 1 CAPSULE BY MOUTH EVERY DAY FOR 90 DAYS active Not Available Not Available No t Available vitamin B complex tablet 2015 active Medicati on ID: [id number] B rand Name: vitamin B complex Send Method: E-Prescr ibed Sub s Allowed: subs OK Medic ationGen ericName : vitamin B complex Not Available Not Available Not Available monteluka st 10 mg tablet TAKE 1 TABLET BY MOUTH AT BEDTIME active Not Available Not Available No t Available [place] Thyroid 30 mg tablet TAKE 1 TABLET BY MOUTH EVERY DAY FOR 90 DAYS active Not Available Not Available No t Available estradiol 0.01% (0.1 mg/gram) vaginal cream INSERT 1 GRAM VAGINALL Y TWICE WEEKLY active Not Available Not Available No t Available verapamil 80 mg tablet 05/11 completed Medicati on ID: [id number] D uration Value: 90 Brand Name: verapami l Send Method: E-Prescr ibed Sub s Allowed: subs OK Medic ationGen ericName : verapami l Not Available Not Available Not Available Vitamin C 500 mg capsule,e xtended release 2015 active Medicati on ID: [id number] B rand Name: Vitamin C Send Method: E-Prescr ibed Sub s Allowed: subs OK Medic atJulio ericName : Vitamin C Not Available Not [...] Diagnosis/Indication Diagnosis SNOMED-CT Code Diagnosis ICD10 Code [id number] NATA THORNTON MA, CCC-A [facility] [place] 100 [facility] 100 [place] [address] 06/14/2024 12:46:07 06/15/2024 07:47:41 Sensorineural hearing loss of bilateral ears [id number] H90.3 90753 NATA THORNTON [place], CYDNEY-[place] [facility] [place] 100 [facility] it 100 [place] [address] 06/22/2024 10:59:33 06/23/2024 07:27:18 Sensorineural hearing loss of bilateral ears 981838937 H90.3 05541 NATA THORNTON MA, CCC-A [facility] [place] 100 [facility] ite 100 [place] [address] 07/05/2024 11:55:04 07/07/2024 11:39:54 Sensorineural hearing loss of bilateral ears 696578612 H90.3 Health Concerns Section Related Observation LastModified by Organization Detai ls LastModified Time None Recorded Concern Status LastModified by Organization Details LastModified Time None Recorded Payers Encounter Date Sequence Insurance Name Policy Number Policy Flynn Covered Member ID Flynn Member ID Guarantor Name 07/05/2024 1 [place]ARE [place]: [facility] GOVERNMENT SERVICES Renée Paris [id number] 3 Renée Paris 07/05/2024 2 [facility] - SENIOR SERVICES PLAN F (MEDICARE SUPPLEMENT) [id number] Renée Paris [id number] Renée Paris OBGyn Episode No OBEpisode recorded.
--- OUTSIDE RECORDS SUMMARY | 2024-07-08 14:41 | XMS_ITS | Continuity of Care Document ---
Author Organization [place] - [facility] Address [address] [address] Care Team Providers Care Director Of Recruiting Name Role Phone DEYANIRA STANFORD Primary Care Provider Assessment Encounter Date Assessment Date Assessment LastModified by Organization Details LastModified Time 06/01/2024 06/01/2024 06/01/2024 Patient is here as a previous patient to discuss new amplification. Her current Widex hearing aids are over 6 years old. She has a hearing aid benefit thru [employer]/ [employer]. Last year, she tried aids at [facility] for 6 months and then returned them as they didn't seem any better than the ones she had. I quoted pricing for [employer]. She had some difficulty deciding between the 90's or 70's but ultimately decided on the 90's. She understands that she has a 30 day (not 90) trial period and that there is a $200 charge, if returned. Speaker 1, brown aid , small open domes. R/s Nata Thornton [place] [facility] tyler Not available 06/01/2024 16:41:18 Plan of Treatment Reminders Order Date Submit [...] Abnormal Flag Note LastModifiedBy Organization Detail LastModifiedTime 05/12/2004/01/2024 CT, angio gram, chest , w/o contr [...] Time Benign paroxysma l positiona l vertigo 044523382 Active 2018 Benign paroxysma l vertigo, right ear; Note: Date Diagnosed : 07/23/2018 4:07 PM (H81.11) Not Available [facility] 4 03:20:01 Dizziness and giddiness 653377700 Active 2018 Dizziness and giddiness ; Note: Date Diagnosed : 07/23/2018 3:40 PM (R42) Not Available [facility] 4 03:20:02 Sensorine ural hearing loss of bilateral ears 924726037 Active 2015 Sensorine ural HL, bilateral ; Note: Date Diagnosed : 05/12/2014 3:16 PM (389.18) ; Start Date : 4 Sensori neural hearing loss, bilateral ; Note: Date Diagnosed : 11/20/2015 12:02 PM (H90.3) Not Available [facility] 4 03:20:01 Essential hypertens ion 05063756 Active 2018 Essential (primary) hypertens ion; Note: Date Diagnosed : 07/23/2018 4:07 PM (I10) Not Available [facility] 4 03:20:02 Impacted cerumen in right ear 26351097349 81079 Active 2015 Impacted cerumen, right ear; Note: Date Diagnosed : 6 4:31 PM (H61.21) Not Available [facility] 4 03:20:02 Finding of sensation of musculosk eletal structure of neck 315575040 Active 2023 CARLOS JC MD 100 [facility],[place] [address], [facility] [place], [address] , [facility] - [facility] 4 10:25:55 Problem Notes None recorded. Procedures Surgical History Date Name Laterality Status Provider Name and Address Organization Details Recorded Time 05/11/20 24 Comp Audio with Tymps (73787 & 20654) completed NATA THORNTON MA, CCC-A 100 [facility] 100, [place], [address], [facility] - [facility] 05/11/2024 09:55:22 thyroidectomy completed Keven Mandujano [place] - [facility] 05/11/2024 10:17:41 hernia repair completed Kevenzhao Mandujano [place] - [facility] 05/11/2024 10:17:51 Kidney Stone Removal completed [facility] - [facility] 05/11/2024 10:18:02 Imaging Results None recorded. Procedure [...] Not Available Not Available No t Available [place] Thyroid 15 mg tablet 2015 active Medicati on ID: [id number] D uration Value: 30 Brand Name: [place] Thyroid Send Method: E-Prescr ibed Sub s Allowed: subs OK Medic ationGen ericName : [place] Thyroid Not Available Not Available Not Available meclizine 25 mg tablet active Not Available Not Available Not Available verapamil ER (PM) 100 mg capsule 24hr pellet CT,ext.re lease TAKE 1 CAPSULE BY MOUTH EVERY DAY FOR 90 DAYS active Not Available Not Available No t Available vitamin B complex tablet 2015 active Medicati on ID: [id number] B rand Name: vitamin B complex Send [...] mg tablet 05/11 completed Medicati on ID: [id number] D uration Value: 90 Brand Name: verapami l Send Method: E-Prescr ibed Sub s Allowed: subs OK Medic ationGen ericName : verapami l Not Available Not Available Not Available Vitamin C 500 mg capsule,e xtended release 2015 active Medicati on ID: [id number] B rand Name: Vitamin C Send Method: [...] Diagnosis/Indication Diagnosis SNOMED-CT Code Diagnosis ICD10 Code 15784 CARLOS JC MD [facility] [place] [address] [place] [address] 05/11/2024 09:14:43 05/11/2024 10:29:46 Finding of sensation of musculoskeletal structure of neck 633988016 M54.2 Sensorineu ral hearing loss of bilateral ears 809638006 H90.3 51338 NATA THORNTON MA, CCC-A [facility] 100 [place] [address] 05/11/2024 09:14:43 05/11/2024 10:29:46 Sensorineural hearing loss of bilateral ears 299766119 H90.3 68357 NATA THORNTON MA, CCC-A [facility] [place] 100 [facility], ite 100 [place] [address] 06/01/2024 12:45:59 06/03/2024 07:30:04 Sensorineural hearing loss of bilateral ears 534569571 H90.3 Health Concerns Section Related Observation LastModified by Organization Detai ls LastModified Time None Recorded Concern Status LastModified by Organization Details LastModified Time None Recorded Payers Encounter Date Sequence Insurance Name Policy Number Policy Flynn Covered Member ID Flynn Member ID Guarantor Name 06/01/2024 1 [place]ATIONAL GOVERNMENT [employer] Renée Paris [id number] 3 Renée Paris 06/01/2024 2 [facility] - SENIOR SERVICES PLAN F (MEDICARE SUPPLEMENT) [id number] Renée Paris [id number] Renée Paris OBGyn Episode No OBEpisode recorded.
--- OUTSIDE RECORDS SUMMARY | 2024-07-08 14:41 | XMS_ITS | Continuity of Care Document ---
Author Organization [place] - [facility], [facility] Address 100 [place] [address] Care Team Providers Care Naval Architect Name Role Phone DEYANIRA STANFORD Primary Care Provider Assessment No assessment recorded. Plan of Treatment Reminders Order Date Submit Date Provider Last Modified By Organization Details Last Modified Time Details Appointments [facility] Fitting Follow Up (60) 2024 12:00P M [facility] Not available Not available Not available [facility] Flexible Appointme nt 2024 10:00A M [facility] Not available Not available Not available Lab [...] Time Benign paroxysma l positiona l vertigo 897025526 Active 2018 Benign paroxysma l vertigo, right ear; Note: Date Diagnosed : 07/23/2018 4:07 PM (H81.11) Not Available [facility] 4 03:20:01 Dizziness and giddiness 922338723 Active 2018 Dizziness and giddiness ; Note: Date Diagnosed : 07/23/2018 3:40 PM (R42) Not Available [facility] 4 03:20:02 Sensorine ural hearing loss of bilateral ears 162115755 Active 2015 Sensorine ural HL, bilateral ; Note: Date Diagnosed : 05/12/2014 3:16 PM (389.18) ; Start Date : 4 Sensori neural hearing loss, bilateral ; Note: Date Diagnosed : 11/20/2015 12:02 PM (H90.3) Not Available [facility] 4 03:20:01 Essential hypertens ion 59523057 Active 2018 Essential (primary) hypertens ion; Note: Date Diagnosed : 07/23/2018 4:07 PM (I10) Not Available [facility] 4 03:20:02 Impacted cerumen in right ear 58379019811 63313 Active 2015 Impacted cerumen, right ear; Note: Date Diagnosed : 6 4:31 PM (H61.21) Not Available [facility] 4 03:20:02 Finding of sensation of musculosk eletal structure of neck 796517754 Active 2023 CARLOS JC MD [address] [place] [address], [facility] [place], [address] , [facility] - [facility] 4 10:25:55 Problem Notes None recorded. Procedures Surgical History Date Name Laterality Status Provider Name and Address Organization Details Recorded Time 05/11/20 24 Comp Audio with Tymps (34465 & 99885) completed IRMA THORNTON MA, CCC-A [address] [place] [address], [place], [address], [facility] - [facility] 05/11/2024 09:55:22 thyroidectomy completed Keven Mandujano [place] - [facility] 05/11/2024 10:17:41 hernia repair completed Keven Mandujano [facility] 05/11/2024 10:17:51 Kidney Stone Removal completed [facility] 05/11/2024 10:18:02 Imaging Results None recorded. [...] Not Available Not Available No t Available [place] Thyroid 15 mg tablet 2015 active Medicati on ID: [id number] D uration Value: 30 Brand Name: [place] Thyroid Send Method: E-Prescr ibed Sub s Allowed: subs OK Medic ationGen ericName : [place] Thyroid Not Available Not Available Not Available meclizine 25 mg tablet active Not Available Not Available Not Available verapamil ER (PM) 100 mg capsule 24hr pellet CT,ext.re lease TAKE 1 CAPSULE BY MOUTH EVERY DAY FOR 90 DAYS active Not Available Not Available No t Available vitamin B complex tablet 2015 active Medicati on ID: [id number] B rand Name: vitamin B complex Send [...] mg tablet 05/11 completed Medicati on ID: [id number] D uration Value: 90 Brand Name: verapami l Send Method: E-Prescr ibed Sub s Allowed: subs OK Medic ationGen ericName : verapami l Not Available Not Available Not Available Vitamin C 500 mg capsule,e xtended release 2015 active Medicati on ID: [id number] B rand Name: Vitamin C Send Method: [...] Diagnosis/Indication Diagnosis SNOMED-CT Code Diagnosis ICD10 Code 57688 CARLOS JC MD [facility] [address] [address] 05/11/2024 09:14:43 05/11/2024 10:29:46 Finding of sensation of musculoskeletal structure of neck 697217215 M54.2 Sensorineu ral hearing loss of bilateral ears 284702470 H90.3 10101 IRMA THORNTON [place], [facility] [address] [address] 05/11/2024 09:14:43 05/11/2024 10:29:46 Sensorineural hearing loss of bilateral ears 337094778 H90.3 Health Concerns Section Related Observation LastModified by Organization Priscilla pedraza LastModified Time None Recorded Concern Status LastModified by Organization Details LastModified Time None Recorded Payers Encounter Date Sequence Insurance Name Policy Number Policy Flynn Covered Member ID Flynn Member ID Guarantor Name 05/11/2024 1 MEDICARE B-[place]: [employer] Renée Paris [id number] Renée Paris 05/11/2024 2 [facility] - [employer] SERVICES PLAN F (MEDICARE SUPPLEMENT) [id number] Renée Paris [id number] Renée Paris Notes Date Note Type Note Provider Name and Address Organization Details Recorded Time 05/11/2024 text/html Several years pa in in posterior cervical muscles to occiputNotes HL.--aids from [employer] doxycycline on Lyme co-infectionsPain in occiput region radiating to scalp. No vertigoPrior imaging normal CARLOS GALARZA MD [address] [place] [address], [address], [facility] - [facility] 05/11/2024 10:27:57 OBGyn Episode No OBEpisode recorded.
--- OUTSIDE RECORDS SUMMARY | 2024-07-08 14:41 | XMS_ITS | Continuity of Care Document ---
Author Organization [place] - [facility], [facility] Address [address] [place] [address] Care Team Providers Care Senior Game Advisor Name Role Phone DEYANIRA STANFORD Primary Care Provider Assessment Encounter Date Assessment Date Assessment LastModified by Organization Details LastModified Time 05/11/2024 05/11/2024 Appears to have neck pain and scalp pain secondary to tight cervical muscles. Suggest follow-up with PCP to discuss management of her arthritis and possible physical therapy. No neck masses noted. She does have relatively stable moderately severe sensorineural hearing loss bilaterally. I think the hearing aids that she purchased 5 years ago are in adequate. She has already tried to get new hearing aids through [employer] but those were not helpful. I have suggested upgraded technology. We also discussed that possibly some of her hearing difficulties may be related to processing and she may benefit from neuropsych evaluation at some point in the future ana laurastein Not available 05/11/2024 10:27:01 Plan of Treatment Reminders Order Date Submit Date Provider Last Modified By Organization Details Last Modified Time Details Appointments NDIAYE Fitting Follow Up (60) 2024 12:00P M [facility] Not available Not available Not available NDIAYE Flexible Appointme nt 2024 10:00A M [facility] Not available Not available Not available Lab [...] record ed. [email or web address] Not Available 22:07:45 05/13/20 24 audio gram No observ ation record ed. BARCODE Not Available 2023 15:24:15 Result Notes None recorded. Problems Name Problem SNOMED Code Status Onset Date Resolution Date Notes Provider Name and Address Organization Details Recorded Time Benign paroxysma l positiona l vertigo 558242981 Active 2018 Benign paroxysma l vertigo, right ear; Note: Date Diagnosed : 07/23/2018 4:07 PM (H81.11) Not Available [facility] 4 03:20:01 Dizziness and giddiness 086175146 Active 2018 Dizziness and giddiness ; Note: Date Diagnosed : 07/23/2018 3:40 PM (R42) Not Available [facility] 4 03:20:02 Sensorine ural hearing loss of bilateral ears 510236598 Active 2015 Sensorine ural HL, bilateral ; Note: Date Diagnosed : 05/12/2014 3:16 PM (389.18) ; Start Date : 4 Sensori neural hearing loss, bilateral ; Note: Date Diagnosed : 11/20/2015 12:02 PM (H90.3) Not Available [facility] 4 03:20:01 Essential hypertens ion 14844894 Active 2018 Essential (primary) hypertens ion; Note: Date Diagnosed : 07/23/2018 4:07 PM (I10) Not Available [facility] 4 03:20:02 Impacted cerumen in right ear 10760037476 57450 Active 2015 Impacted cerumen, right ear; Note: Date Diagnosed : 6 4:31 PM (H61.21) Not Available [facility] 4 03:20:02 Finding of sensation of musculosk eletal structure of neck 064356413 Active 2023 CARLOS JC MD [address] [facility] [address], [facility] [place], [address] , [facility] - [facility] 10:25:55 Problem Notes None recorded. Procedures Surgical History Date Name Laterality Status Provider Name and Address Organization Details Recorded Time 05/11/20 24 Comp Audio with Tymps (23686 & 90866) completed IRMA THORNTON MA, CCC-A [address] [facility] [address], [place], [address], [facility] - [facility] 05/11/2024 09:55:22 thyroidectomy completed [facility] 05/11/2024 10:17:41 hernia repair completed [facility] 05/11/2024 10:17:51 Kidney Stone Removal completed [facility] 05/11/2024 10:18:02 Imaging Results None recorded. [...] Not Available Not Available No t Available Allenton Thyroid 15 mg tablet 2015 active Medicati on ID: [id number] D uration Value: 30 Brand Name: [place] Thyroid Send Method: E-Prescr ibed Sub s Allowed: subs OK Medic ationGen ericName : All[place] Thyroid Not Available Not Available Not Available meclizine 25 mg tablet active Not Available Not Available Not Available verapamil ER (PM) 100 mg capsule 24hr pellet CT,ext.re lease TAKE 1 CAPSULE BY MOUTH EVERY DAY FOR 90 DAYS active Not Available Not Available No t Available vitamin B complex tablet 2015 active Medicati on ID: [id number] B rand Name: vitamin B complex Send Method: E-Prescr ibed Sub s Allowed: subs OK Medic ationGen ericName : vitamin B complex Not Available Not Available Not Available [facility] 10 mg tablet TAKE 1 TABLET BY MOUTH AT BEDTIME active Not Available Not Available No t Available [place] Thyroid 30 mg tablet TAKE 1 TABLET BY MOUTH EVERY DAY FOR 90 DAYS active Not Available Not Available No t Available estradiol 0.01% (0.1 mg/gram) vaginal cream INSERT 1 GRAM VAGINALL Y TWICE WEEKLY active Not Available Not Available No t Available verapamil 80 mg tablet 05/11 completed Medicati on ID: [id number] D uration Value: 90 Brand Name: verapami l Send Method: E-Prescr ibed Sub s Allowed: subs OK Medic ationGen ericName : verapami l Not Available Not Available Not Available Vitamin C 500 mg capsule,e xtended release 2015 active Medicati on ID: [id number] B rand Name: Vitamin C Send Method: [...] Diagnosis/Indication Diagnosis SNOMED-CT Code Diagnosis ICD10 Code [id number] CARLOS CJ MD [facility] of [address] [address] 05/11/2024 09:14:43 05/11/2024 10:29:46 Finding of sensation of musculoskeletal structure of neck 721513893 M54.2 Sensorineu ral hearing loss of bilateral ears [id number] H90.3 [id number] IRMA THORNTON MA, CCC-A [facility] - [facility] [address] [facility] [place] [address] 05/11/2024 09:14:43 05/11/2024 10:29:46 Sensorineural hearing loss of bilateral ears [id number] H90.3 Health Concerns Section Related Observation LastModified by Organization Detai ls LastModified Time None Recorded Concern Status LastModified by Organization Details LastModified Time None Recorded Payers Encounter Date Sequence Insurance Name Policy Number Policy Flynn Covered Member ID Flynn Member ID Guarantor Name 05/11/2024 1 [place] [employer] Renée Paris [id number] Renée Paris 05/11/2024 2 [facility] PLAN F (MEDICARE SUPPLEMENT) [id number] Renée Paris [id number] Renée Paris Notes Date Note Type Note Provider Name and Address Organization Details Recorded Time 05/11/2024 text/html Several years pa in in posterior cervical muscles to occiputNotes HL.--aids from [employer] doxycycline on Lyme co-infectionsPain in occiput region radiating to scalp. No vertigoPrior imaging normal CARLOS GALARZA MD [address] [facility],[place] [address], [place], [address], [place] - [facility] 05/11/2024 10:27:57 OBGyn Episode No OBEpisode recorded.
== END 2024-07-08 13:08 | disposition home or self-care (01) ==
LOC: HO.RESP 13:07
PROVIDERS: PCP Physician Assistant; Visit Provider Hospitalist
DX: J84.9 Interstitial pulmonary disease, unspecified (principal); U09.9 Post COVID-19 condition, unspecified
CPT/HCPCS: 94010; 94640; 94727; 94729

== ENCOUNTER → 2024-07-08 13:10 | Outpatient (BNV) | payer MEDICARE, OTHER, SELFPAY | PROVIDERS: PCP Physician Assistant; Visit Provider Hospitalist | DX: J84.9 Interstitial pulmonary disease, unspecified (principal); U09.9 Post COVID-19 condition, unspecified | CPT/HCPCS: 94060; 94727; 94729 ==

== ENCOUNTER 2024-08-15 12:57 | Outpatient (AMB) | payer MEDICARE, OTHER, SELFPAY ==
[2024-08-15 13:08] VITALS: BP 156/80; PULSE 71; O2SAT 99; BMI 28.1
--- NOTE | 2024-08-15 13:08 | MHC.OFFVIS ---
Vital Signs 08/15/24 13:08 Height 5 ft 3 in Weight 158 lb 11.725 oz BMI 28.1 BP 156/80 H Blood Pressure Location Rt brachial Position Sitting Pulse 71 Pulse Source Pulse Oximeter Pulse Oximetry (%) 99 Oxygen Delivery Method Room Air Intake Visit Reasons: BAUTISTA Allergies ciprofloxacin [From Cipro] Adverse Reaction (Severe, Verified 04/14/24 12:56) Dizziness HPI Comments Details: The patient is an 83-year-old woman with a known history of asthma and also a long history of symptoms of dyspnea. She does have dyspnea on exertion which is moderate severity. Typically worsens when she goes up 1 flight of stairs. She has had extensive workup throughout the years. She has had multiple inhalers as well to try to help with her asthma symptoms. As far as exposures he was exposed to significant amount of mold for. Her life. She has not had any recent allergy testing. In view of her significant dyspnea symptoms the patient did have a workup including CT scan of the chest that she had back in December 2021. I personally reviewed the CT scan demonstrating pulmonary nodules which appear to be inflammatory in nature primarily in the right lower lobe area. In addition to that some degree of lymphadenopathy also was noted in the mediastinum. No evidence of any significant parenchymal lung disease noted or interstitial lung disease to be concerned about or to be able to explain her symptoms. In view of the significant pulmonary nodule in the right lower lobe measuring more than 8 mm in size the patient did undergo a PET scan at [facility]. It appeared that does nodular densities resolve suggesting indeed that was inflammatory process. The patient did have an echocardiogram that was done at [facility]. There may have been some degree of relaxation impairment. During the visit we did go for brief walking oximetry. It was noted patient became significantly dyspneic when her heart rate increased to above 115. her pulse oximeter was stable throughout the ambulation. 03/27/2022 the patient is here for pulmonary follow-up visit. she is here with her daughter. The patient continues to have significant dyspnea with minimal activity. She has been concerned about doing any activity because of the symptoms. Based on her initial evaluation in her significant tachycardia we talked about having her undergo a stress test. We did reach out to her school resource officer. depending on that discussion we can always consider a cardiopulmonary exercise study to further address her ongoing symptoms. The patient's echocardiogram did demonstrate some diastolic dysfunction which I believe is playing a role. In addition to that the patient does have some the lying bibasilar scarring that may also may be resulting in some decrease lung compliance. Therefore, I do believe that her dyspnea symptoms may be multifactorial. The patient does have an underlying pulmonary nodule that it measures 8 mm in size in addition to the lymphadenopathy and the bibasilar scarring and therefore she should have a repeat CT scan 6 months from her last imaging study. In addition to that the patient does have underlying sleep apnea. We did review her sleep study. The patient did try CPAP and she did not tolerated whatsoever. Explained to her that indeed if she has evidence of cardiovascular risk factors then revisit in the sleep apnea condition be important in order to properly treat her cardiovascular risk and symptoms. 06/04/2022 the patient is here for a pulmonary follow-up visit. Patient has still the persistent issues with her dyspnea. Even minimal activity. Moderate severity. Although she does describe now that she she is more fatigued. She does complaint of the daytime drowsiness. She brought up the fact that she does have moderate sleep apnea and she could not tolerate the CPAP. She is wondering if she needs to give that another opportunity to see if her symptoms improved. She did follow-up with cardiology and she did undergo a nuclear stress test which is reassuring without any evidence of any ischemia or [employer] cardiac abnormalities to explain her shortness of breath. Again, pulmonary function studies also were reassuring. There also may be a component of deconditioning. The patient may be a good candidate for pulmonary rehabilitation. We also reviewed her CT scan of the chest it appears that she has interval resolution of her pulmonary density. This is reassuring. She has some minimal scarring at the bases but no evidence of any worsening disease. Her blood work was all reassuring as well. She did have a slight elevation the ROBB but her titer is low 1:80. at least compared to her previous CT scan there is no apparent worsening any interstitial lung disease at this time. The patient also complains of nasal congestion and allergies. She has tried fluticasone in the past without any significant help. Will go ahead and place her back some Zyrtec and also small dose of Singulair to make sure she can not tolerated. 08/13/2022 the patient is here for a pulmonary follow-up visit. The patient has been doing relatively well from a respiratory status. She does continue to have her dyspnea. She recently recovered from COVID-19. Yjei-iw-nryioncm severity. The patient has underlying interstitial lung disease and now recovering from COVID. This is resulting the significant dyspnea symptoms. She has had a full cardiac workup which is been reassuring. The patient also is been having issues with sleep apnea. We did repeat her home sleep study in the patient does has a mild degree of sleep apnea. This could be treated with positional therapy as she has her significant apneas when she lays on her back. We talked about different positional therapy devices that she can consider in order for her to sleep on her sides the patient is encouraged about starting pulmonary rehabilitation. This will provide her with relief and conditioning of her ongoing dyspnea symptoms. Also, more recently she started developing significant knee pain. This has been very limiting for her. She did have an ultrasound ruling out DVT specially since he D-dimer was elevated. Her rheumatological workup was slightly abnormal and she is going to follow up with Rheumatology at this time. In the meantime since she is still recovering from COVID I will give her short course of prednisone that will probably help her respiratory status and also indirectly help her knee. 02/11/2023 the patient is here for pulmonary follow-up visit. Overall patient is doing a little better. Still having dyspnea on exertion. Mild to moderate in severity. She did go to a functional medicine specialist. She was diagnosed with chronic Lyme and also adrenal insufficiency. She is currently being evaluated and treated for that. In the meantime the patient has had a cardiac and pulmonary workup without any significant clarity for the symptoms of dyspnea. 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 Patient was supposed to start pulmonary rehab but then developed a knee injury and she could not started. Now she is doing better from the knee injury and do recommend she start the pulmonary rehab at this time. Will go ahead and request pulmonary rehab at [facility] as her preference. We did review her last CT scan of the chest which demonstrated interval improvement of the nodular density. Overall stable. Will talk about further imaging studies in the future. Right now she is also dealing with issues of dizziness. She is looking for the neurologist. 08/13/2023 the patient is here for a pulmonary follow-up visit. Overall the patient has been doing better overall. She has been participating in the pulmonary rehabilitation program and she is found that to be very helpful for her. She is continued to participate even after completing the 8 week program. She is going twice a week now. The patient does have a hard time walking long distances because she does develop some back pain. She did have neck pain and back pain over the fall. She was evaluated [facility] at that point in did have a CTA. The patient did have some evidence of atelectasis although can not rule out pneumonitis/ILD. The patient is requesting inhaler to use. I do believe is a good idea for her to have 1. She also continues with respiratory medicine. I will provide her Dulera that she can start using. I did give him instructions on how to use it appropriately. The patient needs to rinse her mouth after she is she will use the inhaler for now she has any difficulties with it she will call the office. Otherwise she will follow-up in the fall of 2023. 04/14/2024 the patient is here for a pulmonary follow-up visit. The patient overall has been doing okay. She still complains of dyspnea on exertion. 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 She was going to be started on doxycycline. She did have a chest x-ray which we personally reviewed. She does have some degree of scoliosis. This potentially could be contributing to some degree. The patient will undergo repeat pulmonary function studies on her x-ray. In the meantime she is going to continue with current respiratory regimen. The patient does have episodes of waking up short of breath at nighttime. Will request an overnight oximetry to see if she benefits from any nocturnal oxygen supplementation. The patient follow-up in 3-4 months. If she has any issues prior to that she will call for an earlier assessment. 08/15/2024 the patient is here for a pulmonary follow-up visit. Overall she is to continues to have dyspnea on exertion. She is following closely with her chronic Lyme infection. She also complains of sinusitis. She has been having sinusitis now for few weeks. Has been having a lot of pressure and pain around the maxillary area. She tolerates the doxycycline okay. In addition to that she did undergo pulmonary function studies for dyspnea on exertion. Her pulmonary capacity is normal. We also went for brief walking oximetry and she did great except for elevated heart rate. She also has lower extremity edema. Will request an echocardiogram at this time. She also has daytime drowsiness. She carries a diagnosis of sleep apnea. Her [place] score is elevated 05/29. She has a hard time with an in-lab study. Therefore will request a home sleep study at this time. 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 COVID-19 FARHAT (obstructive sleep apnea) Pulmonary fibrosis Lymphadenopathy Pulmonary nodules Dyspnea Asthma Social History Patient Tobacco Use Status: Never used Tobacco Review of Systems Const Reports daytime sleepiness, Reports difficulty sleeping, Reports fatigue and Denies fever(s) Eyes Denies itchy eyes ENT Denies change in voice and Reports dizziness Card Denies chest pain and Reports dyspnea on exertion Resp Reports dyspnea on exertion GI Reports no additional complaints Musc Reports myalgias Skin/Breast Denies rash Neuro Reports no additional complaints and Reports dizziness Endo Reports fatigue Aller/Immun Denies itchy eyes Physical Exam Vital Signs: Last Vital Signs Pulse 71 08/15/24 13:08 BP 156/80 H 08/15/24 13:08 Pulse Ox 99 08/15/24 13:08 Oxygen Delivery Method Room Air 08/15/24 13:08 BMI result Body Mass Index 28.1 Const General: comfortable HEENT Head: Yes normal to inspection Eyes General: appearance normal, both eyes and all related structures Neck Neck: Yes supple Chest Chest palpation & inspection: normal inspection of the chest Resp Effort & Inspection: normal respiratory effort Auscultation: no crackles and diminished lung sounds Cardio Rate: regular rate Rhythm: regular rhythm Heart sounds: S1 normal heart sound present and S2 normal heart sound present Extrem General: Yes edema Assessment & Plan Assessment & Plan (1) Dyspnea: Code(s): R06.00 - Dyspnea, unspecified Category: Medical Qualifiers: Dyspnea type: dyspnea on exertion Qualified Code(s): R06.09 - Other forms of dyspnea (2) Asthma: Code(s): J45.909 - Unspecified asthma, uncomplicated Category: Medical Qualifiers: Asthma complication type: uncomplicated Asthma persistence: intermittent Asthma severity: mild Qualified Code(s): J45.20 - Mild intermittent asthma, uncomplicated (3) Pulmonary nodules: Code(s): R91.8 - Other nonspecific abnormal finding of lung field Category: Medical (4) FARHAT (obstructive sleep apnea): Code(s): G47.33 - Obstructive sleep apnea (adult) (pediatric) Category: Medical (5) ILD (interstitial lung disease): Comment: stable Code(s): J84.9 - Interstitial pulmonary disease, unspecified Category: Medical Plan Recommendations: Dulera as needed ECHO HOme PSG short-acting beta agonist as needed continue Singulair continue Zyrtec continue fluticasone positional sleep therapy for her sleep apnea follow-up in 4 months Orders: Orders CA echo transthoracic complete Today I27.20 - Pulmonary hypertension, unspecified RT home sleep study Today G47.33 - Obstructive sleep apnea (adult) (pediatric) Medications: New doxycycline hyclate 100 mg PO BID 42 caps 0RF 21 days Coding Level of Care Code Est Pt Level 4 (40601) Complex EM visit Add On G2211 Diagnoses Dyspnea on exertion R06.09 Dyspnea type: dyspnea on exertion Mild intermittent asthma without complication J45.20 Asthma complication type: uncomplicated Asthma persistence: intermittent Asthma severity: mild Pulmonary nodules R91.8 FARHAT (obstructive sleep apnea) G47.33 ILD (interstitial lung disease) J84.9 Time Spent (min) 18
== END 2024-08-15 13:36 | disposition home or self-care (01) ==
PROVIDERS: PCP Physician Assistant; Visit Provider Hospitalist
DX: R06.09 Other forms of dyspnea (principal); J45.20 Mild intermittent asthma, uncomplicated; R91.8 Other nonspecific abnormal finding of lung field; G47.33 Obstructive sleep apnea (adult) (pediatric); J84.9 Interstitial pulmonary disease, unspecified
CPT/HCPCS: 99214; G2211

== ENCOUNTER → 2024-08-15 12:57 | Outpatient (BNVA) | payer MEDICARE, OTHER, SELFPAY | PROVIDERS: PCP Physician Assistant; Visit Provider Hospitalist | DX: J45.20 Mild intermittent asthma, uncomplicated (principal); J84.9 Interstitial pulmonary disease, unspecified; R06.09 Other forms of dyspnea; R91.8 Other nonspecific abnormal finding of lung field; G47.33 Obstructive sleep apnea (adult) (pediatric) | CPT/HCPCS: 99212 ==

== ENCOUNTER → 2024-08-30 12:43 | Outpatient (REF) | payer MEDICARE, OTHER, SELFPAY ==
--- NOTE | 2024-08-30 12:46 | CA_ITS ---
Transthoracic Echocardiogram Patient (Last, First, Middle): Renée Paris C Gender: Female Date of : 1940 Age: 84 Procedure Date: 08/30/2024 Procedure Type: Transthoracic Echocardiogram Location: OP Height: 160.02 cm Weight: 72.58 kg BSA: 1.76 m2 Heart Rate: bpm BP: 164 / 80 mmHg [employer]: SAMSON Referring MD: Herrera Haung MD Symptoms: I27.20 - Pulmonary hypertension, unspecified Study Quality: Fair ECG Rhythm: Sinus Conclusions: - The left ventricular systolic function is normal. The calculated ejection fraction is 65% by biplane method. - No obvious valvular pathology seen on this study. - The right ventricular systolic pressure is 35 mmHg. Borderline pulmonary artery systolic pressure. Findings Left Ventricle Normal left ventricular cavity size. There is normal left ventricular wall thickness. The left ventricular systolic function is normal. The calculated ejection fraction is 65% by biplane method. There is no evidence of regional wall motion abnormalities. Evidence suggests grade I (mild) diastolic dysfunction. Right Ventricle Normal right ventricular cavity size and systolic function. Atria The left atrium is moderately dilated. The right atrium is normal in size. Aortic Valve There is a normal trileaflet aortic valve. There is mild calcification of the aortic valve. There is no aortic valve stenosis. There is no aortic valve regurgitation. Mitral Valve The mitral valve appears normal. There is mild mitral annular calcification. There is trace mitral valve regurgitation. There is no mitral valve stenosis. Pulmonic Valve There is trace pulmonic valve regurgitation. Tricuspid Valve There is mild tricuspid valve regurgitation. The right ventricular systolic pressure is 35 mmHg. Borderline pulmonary artery systolic pressure. Great Vessels The asc aorta is normal in size. Venous The inferior vena cava is mildly dilated and collapses greater than 50% with inspiration. Pericardium/Pleural There is a trivial pericardial effusion. Prior Study Comparison No prior study available for comparison. Recommendations, Care & Conclusions No obvious valvular pathology seen on this study. Measurements 2D Linear Measurements IVSd: 0.96 0.6-0.9/0.6-1.0 cm LVIDd: 4.41 3.9-5.3/4.2-5.9 cm LVIDd Index: 2.51 2.4-3.2/2.2-3.1 cm/m2 LVIDs: 2.80 2.0-3.6 cm LVPWd: 1.04 0.7-1.1 cm LA Diam: 4.20 2.7-3.8/3.0-4.0 cm LAIDs Index: 2.39 1.5-2.3 cm/m2 LV Mass: 184.71 67-162/88-224 g LV Mass Index: 104.95 43-95/49-115 g/m2 LVOT Diam: 1.90 3.0+(-)1.3 cm 2D Systolic Function EF 4C: 66.30 >55% EF 2C: 63.50 >55% EF BiP: 65.00 >55% Mitral Valve MV Pk E: 1.01 MV PK A: 1.14 MV Decel Time: 244.00 E/A: 0.90 E'Lateral: 6.09 E'Medial: 4.68 E/E' Med: 21.60 E/E' Lat: 16.60 PHT: 71.00 MVA PHT: 3.10 Decel [place]: 4.13 Aortic Valve AoV Pk Ayad: 1.81 AoV Mn Ayad: 1.35 AoV VTI: 0.46 AoV Pk Grad: 13.00 Aov Mn Grad: 8.00 DAVID Cont.VTI: 1.62 LVOT LVOT Pk Ayad: 1.17 LVOT Mn Ayad: 0.80 LVOT VTI: 0.26 LVOT Pk Grad: 5.00 LVOT Mn Grad: 3.00 LVOT Diam: 1.90 LVOT Area: 2.84 Diastolic Function MV Pk E: 1.01 MV Pk A: 1.14 E/A: 0.90 E'Medial: 4.68 E/E' Med: 21.60 E' Laterial: 6.09 E/E' Lat: 16.60 Right Ventricle TAPSE (mm): 22.40 TVS' Ayad: 14.40 Tricuspid Valve TR Pk Ayad: 2.60 TR Pk Grad: 27.00 RA Press: 8.00 RVSP: 35.00 Great Vessels Aorta Sinus of Valsalva: 3.00 2.0-3.[address] [place]: 2.48 1.7-3.4 cm Ao Asc: 3.10 2.1-3.4 cm Updated in Other Vendor System with Status of Final Maximiliano Wells MD electronically signed on 08/30/2024 4:22:04 PM with status of Final
--- OUTSIDE RECORDS SUMMARY | 2024-08-30 15:25 | XMS_ITS | Clinical Summary ---
Author Organization [facility] [address] [facility] [address] Address [address] [place] [address] Phone Care Team Providers Care Customizer Name Role Phone Unavailable Primary Care Provider Unavailabl e Encounters Date Type Department Care Team Description 06/06/2024 1:00 PM EST Office Visit Gastroenterology - [address] [place] [id number] Landy Fulton, MARGARET Pancreatic insufficiency (Primary Dx) from Last 3 Months Social History Tobacco Use Types Packs/Day Years Used Date Smoking Tobacco: Never Assessed Comments Unknown Sex and Gender Information Value Date Recorded Sex Assigned at Not on file Legal Sex Female 11:27 AM EST Gender Identity Not on file Sexual Orientation Not on file Last Filed Vital Signs Vital Sign Reading Time Taken Comments Blood Pressure - - Pulse - - Temperature - - Respiratory Rate - - Oxygen Saturation - - Inhaled Oxygen Concentration - - Weight 73 kg (161 lb) 06/06/2024 12:55 PM EST Height 157.5 cm (5' 2 ) 06/06/2024 12:55 PM EST Body Mass Index 29.45 06/06/2024 12:55 PM EST Plan of Treatment Health Maintenance Due Date Last Done Comments DTaP,Tdap,and Td Vaccines (1 - Tdap) 1959 Pneumococcal Vaccine: 50+ Years (1 of 1 - PCV) 1989 Zoster Vaccines (1 of 2) 1989 Cholesterol Screening (Lipid Panel) 06/03/2022 Depression Screening 06/03/2022 Falls Risk Assessment 06/03/2022 Medicare Annual Wellness Visit 06/03/2022 Osteoporosis Screening (Bone Density Screening) 06/03/2022 Social Influencers of Health Screening 06/03/2022 COVID-19 Vaccine (4 - 2023-2 5 season) 2024 05/27/2021, 10/04/2020, 09/13/2020 Influenza Vaccine (#1) 2024 Hypertension/CHF/CAD Annual BMP Blood Test 06/06/2024 RSV Immunization Patients 60 + Years Old Completed 07/09/2023 HIB Vaccines Aged Out No longer eligi ble based on patient's age to complete this topic HPV Vaccines Aged Out No longer eligi ble based on patient's age to complete this topic Hepatitis A Vaccines Aged Out No long er eligible based on patient's age to complete this topic Hepatitis B Vaccines Aged Out No long er eligible based on patient's age to complete this topic IPV Vaccines Aged Out No longer eligi ble based on patient's age to complete this topic MMR Vaccines Aged Out No longer eligi ble based on patient's age to complete this topic Meningococcal ACWY Vaccine Aged Out N o longer eligible based on patient's age to complete this topic Meningococcal B Vacine Aged Out No lo nger eligible based on patient's age to complete this topic RSV Immunization Patients Under 20 months Aged Out No longer eligible b ased on patient's age to complete this topic Varicella Vaccines Aged Out No longer eligible based on patient's age to complete this topic Insurance MEDICARE [facility]
--- OUTSIDE RECORDS SUMMARY | 2024-08-30 15:25 | XMS_ITS | Data Portability ---
Author Organization [place] - [facility], All[facility] Address [address] [address] Care Team Providers Care Meat Soaker Name Role Phone DEYANIRA STANFORD Primary Care Provider [phone] Assessment Encounter Date Assessment Date Assessment LastModified by Organization Details LastModified Time 06/01/2024 06/01/2024 06/01/2024 Patient is here as a previous patient to discuss new amplification. Her current [employer] hearing aids are over 6 years old. She has a hearing aid benefit thru [employer]/ [employer]. Last year, she tried aids at [facility] for 6 months and then returned them [...] small open domes. R/s Nata Thornton MA [facility] tyler Not available 06/01/2024 16:41:18 06/14/2024 06/14/2024 [...] is an experienced user. SHE HAS THE WINCHER AND INSTRUCTIONS THAT CAME WITH HER ORDER. Did not take payment today as she only has demo's. R/S next week to trade demos for her own aids. Nata Alejandro HIDALGO CCC-A [email or web address] Not available 06/14/2024 15:38:24 06/22/2024 06/22/2024 06/22/2024 [...] has been rescheduled for 2 weeks. Nata Alejandro HIDALGO [facility] [email or web address] Not available 06/22/2024 16:47:24 07/05/2024 07/05/2024 [...] compression ratios. R/S for nect week. Nata Alejandro HIDALGO CCC-A [email or web address] Not available 07/05/2024 13:32:28 07/14/2024 07/14/2024 patient decided to return hearing aids as she found no benefit when compared to her [employer] aids. She had not paid or left a down payment as she was fit with demo's, She does owe the $200 for trial. Nata Thornton MA CC-A tyler Not available 08/11/2024 09:21:21 Plan of Treatment Reminders Order Date Submit Date Provider Last Modified By Organization Details Last Modified Time Details Appointments None record ed. Lab None record ed. Referral None record ed. Procedures None record ed. Surgeries None record ed. Imaging None record ed. Medication Orders None record ed. Patient TargetsNo targets recorded. Patient InstructionsNo instructions [...] Time Benign paroxysma l positiona l vertigo [id number] Active 2018 Benign paroxysma l vertigo, right ear; Note: Date Diagnosed : 07/23/2018 4:07 PM (H81.11) Not Available [facility] 4 03:20:01 Dizziness and giddiness [id number] Active 2018 Dizziness and giddiness ; Note: Date Diagnosed : 07/23/2018 3:40 PM (R42) Not Available [facility] 4 03:20:02 Sensorine ural hearing loss of bilateral ears [id number] Active 2015 Sensorine ural HL, bilateral ; Note: Date Diagnosed : 05/12/2014 3:16 PM (389.18) ; Start Date : 4 Sensori neural hearing loss, bilateral ; Note: Date Diagnosed : 11/20/2015 12:02 PM (H90.3) Not Available [facility] 4 03:20:01 Essential hypertens ion 01113072 Active 2018 Essential (primary) hypertens ion; Note: Date Diagnosed : 07/23/2018 4:07 PM (I10) Not Available [facility] 4 03:20:02 Impacted cerumen in right ear [id number] 01452 Active 2015 Impacted cerumen, right ear; Note: Date Diagnosed : 6 4:31 PM (H61.21) Not Available [facility] 4 03:20:02 Finding of sensation of musculosk eletal structure of neck 069779398 Active 2023 CARLOS JC MD [address] [facility],[place] [address], [place], [address] , [facility] - [facility] 4 10:25:55 Problem Notes None recorded. Procedures Surgical History Date Name Laterality Status Provider Name and Address Organization Details Recorded Time 05/11/20 24 Comp Audio with Tymps (96997 & 28487) completed NATA THORNTON MA, CCC-A [address] [facility],[place] [address], [place], [address], [facility] - [facility] 05/11/2024 09:55:22 thyroidectomy completed Keven Mandujano [place] - [facility] 05/11/2024 10:17:41 hernia repair completed Keven Mandujano [place] - [facility] 05/11/2024 10:17:51 Kidney Stone Removal completed [facility] [place] [facility] 05/11/2024 10:18:02 Imaging Results Imaging Date Name [...] Not Available Not Available No t Available [place] Thyroid 15 mg tablet 2015 active Medicati on ID: [id number] D uration Value: 30 Brand Name: Betty Thyroid Send Method: E-Prescr ibed Sub s Allowed: subs OK Medic ationGen ericName : [place] Thyroid Not Available Not Available Not Available meclizine 25 mg tablet active Not Available Not Available Not Available verapamil ER (PM) 100 mg capsule 24hr pellet CT,ext.re lease TAKE 1 CAPSULE BY MOUTH EVERY DAY FOR 90 DAYS active Not Available Not Available No t Available vitamin B complex tablet 2015 active Medicati on ID: [id number] B rand Name: vitamin B complex Send Method: E-Prescr ibed Sub s Allowed: subs OK Medic ationGen ericName : vitamin B complex Not Available Not Available Not Available monteluka st 10 mg tablet TAKE 1 TABLET BY MOUTH AT BEDTIME active Not Available Not Available No t Available [place] Thyroid 30 mg tablet TAKE 1 TABLET BY MOUTH EVERY DAY FOR 90 DAYS active Not Available Not Available No t Available estradiol 0.01% (0.1 mg/gram) vaginal cream INSERT 1 GRAM VAGINALL Y TWICE WEEKLY active Not Available Not Available No t Available verapamil 80 mg tablet 05/11 completed Medicati on ID: [id number] D uration Value: 90 Brand Name: vereleonorami l Send Method: E-Prescr ibed Sub s Allowed: subs OK Medic ationGen ericName : verapami l Not Available Not Available Not Available Vitamin C 500 mg capsule,e xtended release 2015 active Medicati on ID: [id number] B rand Name: Vitamin C Send Method: [...] Diagnosis/Indication Diagnosis SNOMED-CT Code Diagnosis ICD10 Code Diagnosis Note [id number] CARLOS JC MD [facility] [address] [address] 05/11/2024 09:14:43 05/11/2024 10:29:46 Finding of sensation of musculoskeletal structure of neck [id number] M54.2 Sensorineu ral hearing loss of bilateral ears [id number] H90.3 [id number] NATA THORNTON MA, CCC-A [facility] [address] [address] 05/11/2024 09:14:43 05/11/2024 10:29:46 Sensorineural hearing loss of bilateral ears [id number] H90.3 Audiologic al evaluation results: Right ear: {{Normal N ormal through 2 kHz Mild M oderate Mo derately-s evere Eugenia re Profoun d Mild-mod erate#}} {{hearing sloping to a mild slopi ng to a moderate s loping to moderately severe slo ping to severe slo ping to profound f lat high frequency low frequency mid frequency cookie bite owen curve SNHL #}} {{with* se nsorineura l hearing loss with condu ctive hearing loss with mixed hearing loss with}} {{excellen t good* fa ir poor no measurable }} word recognitio n. Left ear: {{Normal N ormal through 2 kHz Mild M oderate* M oderately- severe Sev ere Profou nd}} {{hearing sloping to a mild slopi ng to a moderate s loping to moderately severe slo ping to severe slo ping to profound f lat high frequency low frequency mid frequency cookie bite owen curve SNHL #}} {{with* se nsorineura l hearing loss with condu ctive hearing loss with mixed hearing loss with}} {{excellen t good* fa ir poor no measurable }} word recognitio n. Tympanomet ry: Right Ear:{{Type A* Type As Type Ad Type C Type C, shallow & rounded Ty pe B Type B with large volume Cou ld not maintain a hermetic seal}} Left Ear:{{Type A* Type As Type Ad Type C Type C, shallow & rounded Ty pe B Type B with large volume Cou ld not maintain a hermetic seal}} [id number] NATA THORNTON MA, CCC-A [facility] - [facility] [address] [facility] [address] [place] [address] 06/01/2024 12:45:59 06/03/2024 07:30:04 Sensorineural hearing loss of bilateral ears [id number] H90.3 Audiologic al evaluation results: Right ear: {{Normal N ormal through 2 kHz Mild M oderate Mo derately-s evere Eugenia re Profoun d Mild-mod erate#}} {{hearing sloping to a mild slopi ng to a moderate s loping to moderately severe slo ping to severe slo ping to profound f lat high frequency low frequency mid frequency cookie bite owen curve SNHL #}} {{with* se nsorineura l hearing loss with condu ctive hearing loss with mixed hearing loss with}} {{excellen t good* fa ir poor no measurable }} word recognitio n. Left ear: {{Normal N ormal through 2 kHz Mild M oderate* M oderately- severe Sev ere Profou nd}} {{hearing sloping to a mild slopi ng to a moderate s loping to moderately severe slo ping to severe slo ping to profound f lat high frequency low frequency mid frequency cookie bite owen curve SNHL #}} {{with* se nsorineura l hearing loss with condu ctive hearing loss with mixed hearing loss with}} {{excellen t good* fa ir poor no measurable }} word recognitio n. Tympanomet ry: Right Ear:{{Type A* Type As Type Ad Type C Type C, shallow & rounded Ty pe B Type B with large volume Cou ld not maintain a hermetic seal}} Left Ear:{{Type A* Type As Type Ad Type C Type C, shallow & rounded Ty pe B Type B with large volume Cou ld not maintain a hermetic seal}} [id number] NATA THORNTON MA, CCC-A [facility] - [place] [address] [facility],[place] [address] [place] [address] 06/14/2024 12:46:07 06/15/2024 07:47:41 Sensorineural hearing loss of bilateral ears [id number] H90.3 Audiologic al evaluation results: Right ear: {{Normal N ormal through 2 kHz Mild M oderate Mo derately-s evere Eugenia re Profoun d Mild-mod erate#}} {{hearing sloping to a mild slopi ng to a moderate s loping to moderately severe slo ping to severe slo ping to profound f lat high frequency low frequency mid frequency cookie bite owen curve SNHL #}} {{with* se nsorineura l hearing loss with condu ctive hearing loss with mixed hearing loss with}} {{excellen t good* fa ir poor no measurable }} word recognitio n. Left ear: {{Normal N ormal through 2 kHz Mild M oderate* M oderately- severe Sev ere Profou nd}} {{hearing sloping to a mild slopi ng to a moderate s loping to moderately severe slo ping to severe slo ping to profound f lat high frequency low frequency mid frequency cookie bite owen curve SNHL #}} {{with* se nsorineura l hearing loss with condu ctive hearing loss with mixed hearing loss with}} {{excellen t good* fa ir poor no measurable }} word recognitio n. Tympanomet ry: Right Ear:{{Type A* Type As Type Ad Type C Type C, shallow & rounded Ty pe B Type B with large volume Cou ld not maintain a hermetic seal}} Left Ear:{{Type A* Type As Type Ad Type C Type C, shallow & rounded Ty pe B Type B with large volume Cou ld not maintain a hermetic seal}} [address]135 NATA THORNTON MA, CCC-A [facility] - [place] [address] [facility] [address] [place] [address] 06/22/2024 10:59:33 06/23/2024 07:27:18 Sensorineural hearing loss of bilateral ears [id number] H90.3 Audiologic al evaluation results: Right ear: {{Normal N ormal through 2 kHz Mild M oderate Mo derately-s evere Eugenia re Profoun d Mild-mod erate#}} {{hearing sloping to a mild slopi ng to a moderate s loping to moderately severe slo ping to severe slo ping to profound f lat high frequency low frequency mid frequency cookie bite owen curve SNHL #}} {{with* se nsorineura l hearing loss with condu ctive hearing loss with mixed hearing loss with}} {{excellen t good* fa ir poor no measurable }} word recognitio n. Left ear: {{Normal N ormal through 2 kHz Mild M oderate* M oderately- severe Sev ere Profou nd}} {{hearing sloping to a mild slopi ng to a moderate s loping to moderately severe slo ping to severe slo ping to profound f lat high frequency low frequency mid frequency cookie bite owen curve SNHL #}} {{with* se nsorineura l hearing loss with condu ctive hearing loss with mixed hearing loss with}} {{excellen t good* fa ir poor no measurable }} word recognitio n. Tympanomet ry: Right Ear:{{Type A* Type As Type Ad Type C Type C, shallow & rounded Ty pe B Type B with large volume Cou ld not maintain a hermetic seal}} Left Ear:{{Type A* Type As Type Ad Type C Type C, shallow & rounded Ty pe B Type B with large volume Cou ld not maintain a hermetic seal}} [id number] NATA THORNTON MA, CCC-A [facility] - [place] [address] [facility] [address] [place] [address] 07/05/2024 11:55:04 07/07/2024 11:39:54 Sensorineural hearing loss of bilateral ears [id number] H90.3 Audiologic al evaluation results: Right ear: {{Normal N ormal through 2 kHz Mild M oderate Mo derately-s evere Eugenia re Profoun d Mild-mod erate#}} {{hearing sloping to a mild slopi ng to a moderate s loping to moderately severe slo ping to severe slo ping to profound f lat high frequency low frequency mid frequency cookie bite owen curve SNHL #}} {{with* se nsorineura l hearing loss with condu ctive hearing loss with mixed hearing loss with}} {{excellen t good* fa ir poor no measurable }} word recognitio n. Left ear: {{Normal N ormal through 2 kHz Mild M oderate* M oderately- severe Sev ere Profou nd}} {{hearing sloping to a mild slopi ng to a moderate s loping to moderately severe slo ping to severe slo ping to profound f lat high frequency low frequency mid frequency cookie bite owen curve SNHL #}} {{with* se nsorineura l hearing loss with condu ctive hearing loss with mixed hearing loss with}} {{excellen t good* fa ir poor no measurable }} word recognitio n. Tympanomet ry: Right Ear:{{Type A* Type As Type Ad Type C Type C, shallow & rounded Ty pe B Type B with large volume Cou ld not maintain a hermetic seal}} Left Ear:{{Type A* Type As Type Ad Type C Type C, shallow & rounded Ty pe B Type B with large volume Cou ld not maintain a hermetic seal}} [id number] NATA THORNTON MA, CCC-A [facility] - [address] [facility] [address] 07/14/2024 09:55:09 07/18/2024 07:45:19 Sensorineural hearing loss of bilateral ears [id number] H90.3 Audiologic al evaluation results: Right ear: {{Normal N ormal through 2 kHz Mild M oderate Mo derately-s evere Eugenia re Profoun d Mild-mod erate#}} {{hearing sloping to a mild slopi ng to a moderate s loping to moderately severe slo ping to severe slo ping to profound f lat high frequency low frequency mid frequency cookie bite owen curve SNHL #}} {{with* se nsorineura l hearing loss with condu ctive hearing loss with mixed hearing loss with}} {{excellen t good* fa ir poor no measurable }} word recognitio n. Left ear: {{Normal N ormal through 2 kHz Mild M oderate* M oderately- severe Sev ere Profou nd}} {{hearing sloping to a mild slopi ng to a moderate s loping to moderately severe slo ping to severe slo ping to profound f lat high frequency low frequency mid frequency cookie bite owen curve SNHL #}} {{with* se nsorineura l hearing loss with condu ctive hearing loss with mixed hearing loss with}} {{excellen t good* fa ir poor no measurable }} word recognitio n. Tympanomet ry: Right Ear:{{Type A* Type As Type Ad Type C Type C, shallow & rounded Ty pe B Type B with large volume Cou ld not maintain a hermetic seal}} Left Ear:{{Type A* Type As Type Ad Type C Type C, shallow & rounded Ty pe B Type B with large volume Cou ld not maintain a hermetic seal}} Health Concerns Section Related Observation LastModified by Organization Detai ls LastModified Time None Recorded Concern Status LastModified by Organization Details LastModified Time None Recorded Advance Directives Directive None Recorded Payers Encounter Date Sequence Insurance Name Policy Number Policy Flynn Covered Member ID Flynn Member ID Guarantor Name 06/01/2024 1 [place] Renée Paris [id number] Renée Paris 06/01/2024 2 [employer] - SENIOR SERVICES PLAN F (MEDICARE SUPPLEMENT) [id number] Renée Paris [id number] Renée Paris 06/14/2024 1 [place] Renée Paris [id number] Renée Paris 06/14/2024 2 [employer] - SENIOR SERVICES PLAN F (MEDICARE SUPPLEMENT) [id number] Renée Paris [id number] Renée Paris 06/22/2024 1 [place] Renée Paris [id number] 3 Renée Paris 06/22/2024 2 [employer] - SENIOR SERVICES PLAN F (MEDICARE SUPPLEMENT) [id number] Renée C Blad [id number] Renée C Blad 07/05/2024 1 [place] [facility] Renée C Blad [id number] Renée C Blad 07/05/2024 2 [employer] - SENIOR SERVICES PLAN F (MEDICARE SUPPLEMENT) [id number] Renée C Blad [id number] Renée C Blad 07/14/2024 1 [place] [facility] Renée C Blad [id number] Renée C Blad 07/14/2024 2 [employer] - SENIOR SERVICES PLAN F (MEDICARE SUPPLEMENT) [id number] Renée C Blad [id number] Renée C Blad OBGyn Episode No OBEpisode recorded.
== END ==
LOC: HO.CARD 12:43
PROVIDERS: PCP Physician Assistant; Visit Provider Hospitalist
DX: I27.20 Pulmonary hypertension, unspecified (principal)
CPT/HCPCS: 93306

== ENCOUNTER → 2024-08-30 12:46 | Outpatient (BNV) | payer MEDICARE, OTHER, SELFPAY | PROVIDERS: PCP Physician Assistant; Visit Provider Internal Medicine | DX: I36.1 Nonrheumatic tricuspid (valve) insufficiency (principal); I51.89 Other ill-defined heart diseases; I35.8 Other nonrheumatic aortic valve disorders | CPT/HCPCS: 93306 ==

== ENCOUNTER → 2024-10-12 12:24 | Outpatient (REF) | payer MEDICARE, OTHER, SELFPAY ==
--- OUTSIDE RECORDS SUMMARY | 2024-10-12 14:21 | XMS_ITS | Clinical Summary ---
Author Organization [facility] 299 [facility] Address [address] [place] [address] Phone Care Team Providers Care Cda Teacher Name Role Phone Alden Will Primary Care Provider Allergies Active Allergy Reactions Criticality Noted Date Comments Citalopram 10/04/2024 Paba Hives 10/04/2024 Medications valsartan (DIOVAN) 40 mg tablet Take 2 tablets (80 mg total) by mouth. 1 Active verapamil ER (VERELAN PM) 100 mg 24 hr capsule Take 1 capsule (100 mg total) by mouth 1 (one) time each day. 9 Active [place] Thyroid 30 mg tablet Take 1 tablet (30 mg total) by mouth 1 (one) time each day. 9 Active montelukast (SINGULAIR) 10 mg tablet Take 1 tablet (10 mg total) by mouth. at bedtime. Active saccharomyces boulardii (FLORASTOR) 250 mg capsule Take 1 capsule (250 mg total) by mouth. Active multivit with minerals/lutein (MULTIVITAMIN 50 PLUS ORAL) Take 1 capsule by mouth. Active B complex-vitamin C tablet Take 1 tablet by mouth. 2 Active mometasone-formot sarah (Dulera) 50-5 mcg/actuation HFA aerosol inhaler inhaler Inhale 2 puffs by mouth 2 (two) times a day. Active meclizine (ANTIVERT) 12.5 mg tablet Take 1 tablet (12.5 mg total) by mouth 3 (three) times a day if needed for dizziness. Active melatonin 3 mg tablet Take by mouth. Active famotidine (PEPCID) 20 mg tablet Take by mouth. Active loperamide (IMODIUM A-D) 2 mg tablet Take 1 tablet (2 mg total) by mouth 4 (four) times a day if needed for diarrhea. Active famotidine (PEPCID) 20 mg tablet Take 1 tablet (20 mg total) by mouth 2 (two) times a day. 180 each 3 5 10/05/19 26 Active Creon 36,000-114,000- 180,000 unit capsule,delayed release(DR/EC)Ind ications:Pancreat ic insufficiency Use 2 capsules in the mouth or throat 5 (five) times a day. TAKE 2 CAPSULES BY MOUTH BEFORE MEALS AND SNACKS FIVE TIMES A DAY 300 capsule 11 5 10/06/19 26 Active Creon 36,000-114,000- 180,000 unit capsule,delayed release(DR/EC) TAKE 2 CAPSULES BY MOUTH BEFORE MEALS AND SNACKS FIVE TIMES A DAY 5 10/06/19 25 Discontin ued(Reord er) Active Problems Problem Noted Date Diagnosed Date Pancreatic insufficiency 10/04/2024 Irritable bowel syndrome with constipation 10/04 Gastroesophageal reflux disease without esophagi tis 10/04/2024 Encounters Date Type Department Care Team Description 10/05/2024 Telephone Gastroenterology - [address] [phone] Ismael White MD 10/04/2024 11:00 AM EDT Office Visit Gastroenterology - [address] [phone] Ismael White MD Pancreatic insufficiency (Primary Dx) from Last 3 Months Social History Tobacco Use Types Packs/Day Years Used Date Smoking Tobacco: Never Assessed Comments Unknown Sex and Gender Information Value Date Recorded Sex Assigned at Not on file Legal Sex Female 11:27 AM EST Gender Identity Not on file Sexual Orientation Not on file Obstetrics History Last Filed Vital Signs Vital Sign Reading Time Taken Comments Blood Pressure - - Pulse - - Temperature - - Respiratory Rate - - Oxygen Saturation - - Inhaled Oxygen Concentration - - Weight 72.6 kg (160 lb) 10/04/2024 10:41 AM EDT Height 157.5 cm (5' 2 ) 10/04/2024 10:41 AM EDT Body Mass Index 29.26 10/04/2024 10:41 AM EDT Plan of Treatment Health Maintenance Due Date [...] 2023-2 5 season) 2024 05/27/2021, 10/04/2020, 09/13/2020 Hypertension/CHF/CAD Annual BMP Blood Test 06/06/2024 Influenza Vaccine (Season Ended) 2025 RSV Immunization Adult Patients Completed 07/09/2023 HIB Vaccines Aged Out No [...] age to complete this topic Meningococcal B Vaccine Aged Out No l onger eligible based on patient's age to complete this topic RSV Immunization Patients Under 20 months Aged Out No longer eligible b ased on patient's age to complete this topic Varicella Vaccines Aged Out No longer eligible based on patient's age to complete this topic Insurance MEDICARE [facility] Care Teams Cda Teacher Relationship Specialty Start Date End Date Alden Will PA [address] [place] [address] PCP - General Internal Medicine 09/19/24
== END ==
LOC: HO.SL 12:24
PROVIDERS: PCP Physician Assistant; Visit Provider Hospitalist
DX: G47.33 Obstructive sleep apnea (adult) (pediatric) (principal)
CPT/HCPCS: 95806

== ENCOUNTER → 2024-10-12 12:52 | Outpatient (BNV) | payer MEDICARE, OTHER, SELFPAY | PROVIDERS: PCP Physician Assistant; Visit Provider Internal Medicine | DX: R06.83 Snoring (principal) | CPT/HCPCS: 95806 ==

== ENCOUNTER 2024-11-11 10:53 | Outpatient (AMB) | payer MEDICARE, OTHER, SELFPAY ==
[2024-11-11 10:56] VITALS: BP 154/74; PULSE 78; O2SAT 99; BMI 28.5
--- NOTE | 2024-11-11 10:56 | A.OFFVIS_ITS ---
Vital Signs 11/11/24 10:56 Height 5 ft 3 in Weight 160 lb 14.999 oz BMI 28.5 BP 154/74 H Blood Pressure Location Lt brachial Position Sitting Pulse 78 Pulse Source Pulse Oximeter Pulse Oximetry (%) 99 Oxygen Delivery Method Room Air Intake Visit Reasons: BAUTISTA Medication Nurse Required: No Accompanied by: Self / Same As Patient Allergies ciprofloxacin [From Cipro] Adverse Reaction (Severe, Verified 11/11/24 11:00) Dizziness HPI Comments Details: The patient is an 84-year-old woman with a known history of asthma and also a long history of symptoms of dyspnea. She does have dyspnea on exertion which is moderate severity. Typically worsens when she goes up 1 flight of stairs. She has had extensive workup throughout the years. She has had multiple inhalers as well to try to help with her asthma symptoms. As far as exposures he was exposed to significant amount of mold for. Her life. She has not had any recent allergy testing. In view of her significant dyspnea symptoms the patient did have a workup including CT scan of the chest that she had back in December 2021. I personally reviewed the CT scan demonstrating pulmonary nodules which appear to be inflammatory in nature primarily in the right lower lobe area. In addition to that some degree of lymphadenopathy also was noted in the mediastinum. No evidence of any significant parenchymal lung disease noted or interstitial lung disease to be concerned about or to be able to explain her symptoms. In view of the significant pulmonary nodule in the right lower lobe measuring more than 8 mm in size the patient did undergo a PET scan at [facility]. It appeared that does nodular densities resolve suggesting indeed that was inflammatory process. The patient did have an echocardiogram that was done at [facility]. There may have been some degree of relaxation impairment. During the visit we did go for brief walking oximetry. It was noted patient became significantly dyspneic when her heart rate increased to above 115. her pulse oximeter was stable throughout the ambulation. 03/27/2022 the patient is here for pulmonary follow-up visit. she is here with her daughter. The patient continues to have significant dyspnea with minimal activity. She has been concerned about doing any activity because of the symptoms. Based on her initial evaluation in her significant tachycardia we talked about having her undergo a stress test. We did reach out to her bronc buster. depending on that discussion we can always consider a cardiopulmonary exercise study to further address her ongoing symptoms. The patient's echocardiogram did demonstrate some diastolic dysfunction which I believe is playing a role. In addition to that the patient does have some the lying bibasilar scarring that may also may be resulting in some decrease lung compliance. Therefore, I do believe that her dyspnea symptoms may be multifactorial. The patient does have an underlying pulmonary nodule that it measures 8 mm in size in addition to the lymphadenopathy and the bibasilar scarring and therefore she should have a repeat CT scan 6 months from her last imaging study. In addition to that the patient does have underlying sleep apnea. We did review her sleep study. The patient did try CPAP and she did not tolerated whatsoever. Explained to her that indeed if she has evidence of cardiovascular risk factors then revisit in the sleep apnea condition be important in order to properly treat her cardiovascular risk and symptoms. 06/04/2022 the patient is here for a pulmonary follow-up visit. Patient has still the persistent issues with her dyspnea. Even minimal activity. Moderate severity. Although she does describe now that she she is more fatigued. She does complaint of the daytime drowsiness. She brought up the fact that she does have moderate sleep apnea and she could not tolerate the CPAP. She is wondering if she needs to give that another opportunity to see if her symptoms improved. She did follow-up with cardiology and she did undergo a nuclear stress test which is reassuring without any evidence of any ischemia or [employer] cardiac abnormalities to explain her shortness of breath. Again, pulmonary function studies also were reassuring. There also may be a component of deconditioning. The patient may be a good candidate for pulmonary rehabilitation. We also reviewed her CT scan of the chest it appears that she has interval resolution of her pulmonary density. This is reassuring. She has some minimal scarring at the bases but no evidence of any worsening disease. Her blood work was all reassuring as well. She did have a slight elevation the ROBB but her titer is low 1:80. at least compared to her previous CT scan there is no apparent worsening any interstitial lung disease at this time. The patient also complains of nasal congestion and allergies. She has tried fluticasone in the past without any significant help. Will go ahead and place her back some Zyrtec and also small dose of Singulair to make sure she can not tolerated. 08/13/2022 the patient is here for a pulmonary follow-up visit. The patient has been doing relatively well from a respiratory status. She does continue to have her dyspnea. She recently recovered from COVID-19. [id number] severity. The patient has underlying interstitial lung disease and now recovering from COVID. This is resulting the significant dyspnea symptoms. She has had a full cardiac workup which is been reassuring. The patient also is been having issues with sleep apnea. We did repeat her home sleep study in the patient does has a mild degree of sleep apnea. This could be treated with positional therapy as she has her significant apneas when she lays on her back. We talked about different positional therapy devices that she can consider in order for her to sleep on her sides the patient is encouraged about starting pulmonary rehabilitation. This will provide her with relief and conditioning of her ongoing dyspnea symptoms. Also, more recently she started developing significant knee pain. This has been very limiting for her. She did have an ultrasound ruling out DVT specially since he D-dimer was elevated. Her rheumatological workup was slightly abnormal and she is going to follow up with Rheumatology at this time. In the meantime since she is still recovering from COVID I will give her short course of prednisone that will probably help her respiratory status and also indirectly help her knee. 02/11/2023 the patient is here for pulmonary follow-up visit. Overall patient is doing a little better. Still having dyspnea on exertion. Mild to moderate in severity. She did go to a functional medicine specialist. She was diagnosed with chronic Lyme and also adrenal insufficiency. She is currently being evaluated and treated for that. In the meantime the patient has had a cardiac and pulmonary workup without any significant clarity for the symptoms of dyspnea. 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 Patient was supposed to start pulmonary rehab but then developed a knee injury and she could not started. Now she is doing better from the knee injury and do recommend she start the pulmonary rehab at this time. Will go ahead and request pulmonary rehab at [facility] as her preference. We did review her last CT scan of the chest which demonstrated interval improvement of the nodular density. Overall stable. Will talk about further imaging studies in the future. Right now she is also dealing with issues of dizziness. She is looking for the neurologist. 08/13/2023 the patient is here for a pulmonary follow-up visit. Overall the patient has been doing better overall. She has been participating in the pulmonary rehabilitation program and she is found that to be very helpful for her. She is continued to participate even after completing the 8 week program. She is going twice a week now. The patient does have a hard time walking long distances because she does develop some back pain. She did have neck pain and back pain over the fall. She was evaluated [facility] [place] at that point in did have a CTA. The patient did have some evidence of atelectasis although can not rule out pneumonitis/ILD. The patient is requesting inhaler to use. I do believe is a good idea for her to have 1. She also continues with respiratory medicine. I will provide her Dulera that she can start using. I did give him instructions on how to use it appropriately. The patient needs to rinse her mouth after she is she will use the inhaler for now she has any difficulties with it she will call the office. Otherwise she will follow-up in the fall of 2023. 04/14/2024 the patient is here for a pulmonary follow-up visit. The patient overall has been doing okay. She still complains of dyspnea on exertion. 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 She was going to be started on doxycycline. She did have a chest x-ray which we personally reviewed. She does have some degree of scoliosis. This potentially could be contributing to some degree. The patient will undergo repeat pulmonary function studies on her x-ray. In the meantime she is going to continue with current respiratory regimen. The patient does have episodes of waking up short of breath at nighttime. Will request an overnight oximetry to see if she benefits from any nocturnal oxygen supplementation. The patient follow-up in 3-4 months. If she has any issues prior to that she will call for an earlier assessment. 08/15/2024 the patient is here for a pulmonary follow-up visit. Overall she is to continues to have dyspnea on exertion. She is following closely with her chronic Lyme infection. She also complains of sinusitis. She has been having sinusitis now for few weeks. Has been having a lot of pressure and pain around the maxillary area. She tolerates the doxycycline okay. In addition to that she did undergo pulmonary function studies for dyspnea on exertion. Her pulmonary capacity is normal. We also went for brief walking oximetry and she did great except for elevated heart rate. She also has lower extremity edema. Will request an echocardiogram at this time. She also has daytime drowsiness. She carries a diagnosis of sleep apnea. Her Smackover score is elevated 05/29. She has a hard time with an in-lab study. Therefore will request a home sleep study at this time. 11/11/2024 the patient is here for pulmonary follow-up visit. Overall she is doing okay she still complains about the same dyspnea on exertion [id number] severity. We did review her echocardiogram demonstrated bord bette pulmonary hypertension. Likely that that is a component the factor that is it causing her to have the dyspnea symptoms. Right now her volume status is stable so would not get him recommend any diuresis at this time. The patient did have a sleep study which was a home sleep study which demonstrated no significant sleep apnea. Although I did explain to her the home sleep study sometimes can be limited. In view of the question of pulmonary hypertension and dyspnea she should consider having in-lab sleep study. She will think about it at this time. Her major complaint right now is significant sinusitis sinus pressure and dizziness. She is not responding to the Cable with the counter medications. Will go ahead and start her on a course of doxycycline then did release since she can not tolerate the b.i.d. dosing. If we can not get the extended-release or Dulera release medication then will have to find an alternative. The patient should also try fluticasone nasal spray and Afrin for few days to see if this can open up the nasal passages for allow better drainage. The patient should follow-up with primary care further for the sinusitis issue and she consider ENT if no better. For now she is going to continue with the current respiratory regimen. 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 COVID-19 FARHAT (obstructive sleep apnea) Pulmonary fibrosis Lymphadenopathy Pulmonary nodules Dyspnea Asthma Social History Patient Tobacco Use Status: Never used Tobacco Review of Systems Const Denies chills, Denies fatigue, Denies fever(s) and Denies weight gain Eyes Denies itchy eyes ENT Reports dizziness, Reports nasal congestion, Reports nasal discharge and Reports sinus pressure Card Denies chest pain, Denies leg edema, Denies lightheadedness, Denies palpitations, Denies dyspnea on exertion, Denies orthopnea and Denies other Resp Denies cough and Denies dyspnea on exertion GI Denies hematochezia and Denies change in stool character Musc Denies abnormal gait, Denies muscle weakness, Denies numbness, Denies radiating pain into limb and Denies tingling Skin/Breast Denies rash Neuro Denies abnormal gait, Reports dizziness, Denies numbness and Denies tingling Endo Denies fatigue and Denies palpitations Aller/Immun Denies itchy eyes Physical Exam Vital Signs: Last Vital Signs Pulse 78 11/11/24 10:56 BP 154/74 H 11/11/24 10:56 Pulse Ox 99 11/11/24 10:56 Oxygen Delivery Method Room Air 11/11/24 10:56 BMI result Body Mass Index 28.5 Const General: comfortable HEENT Head: Yes normal to inspection Eyes General: appearance normal, both eyes and all related structures Neck Neck: Yes supple Chest Chest palpation & inspection: normal inspection of the chest Resp Effort & Inspection: normal respiratory effort Auscultation: no crackles and diminished lung sounds Cardio Rate: regular rate Rhythm: regular rhythm Heart sounds: S1 normal heart sound present and S2 normal heart sound present Extrem General: Yes edema Assessment & Plan Assessment & Plan (1) Dyspnea: Code(s): R06.00 - Dyspnea, unspecified Category: Medical Qualifiers: Dyspnea type: dyspnea on exertion Qualified Code(s): R06.09 - Other forms of dyspnea (2) Asthma: Code(s): J45.909 - Unspecified asthma, uncomplicated Category: Medical Qualifiers: Asthma complication type: uncomplicated Asthma persistence: intermittent Asthma severity: mild Qualified Code(s): J45.20 - Mild intermittent asthma, uncomplicated (3) Pulmonary nodules: Code(s): R91.8 - Other nonspecific abnormal finding of lung field Category: Medical (4) FARHAT (obstructive sleep apnea): Code(s): G47.33 - Obstructive sleep apnea (adult) (pediatric) Category: Medical (5) ILD (interstitial lung disease): Comment: stable Code(s): J84.9 - Interstitial pulmonary disease, unspecified Category: Medical (6) Sinusitis: Code(s): J32.9 - Chronic sinusitis, unspecified Category: Medical Qualifiers: Sinusitis location: pansinusitis Chronicity: subacute Qualified Code(s): J01.40 - Acute pansinusitis, unspecified (7) Pulmonary hypertension: Code(s): I27.20 - Pulmonary hypertension, unspecified Category: Medical Plan Recommendations: Dulera as needed ECHO +mild pulmonary HTN HOme PSG non diagnostic, would recommend inlab sleep study (she will think about it short-acting beta agonist as needed continue Singulair continue Zyrtec continue fluticasone start Doxycycline Afrin x 5 days pulmonary rehab follow-up in 4-6 months Medications: New oxymetazoline 0.05% (Afrin (oxymetazoline)) 2 sprays intranasal Q12H PRN 22 mL 0RF nasal congestion 5 days doxycycline hyclate 200 mg PO DAILY 14 tabs 0RF 14 days fluticasone propionate 50 mcg/actuation 2 sprays intranasal DAILY 15.8 mL 11RF 30 days J31.0 - Chronic rhinitis Changed From meclizine 25 mg PO TID PRN To meclizine 25 mg PO TID PRN 20 tabs 3RF dizziness 14 days Coding Level of Care Code Est Pt Level 4 (10881) Complex EM visit Add On G2211 Diagnoses Dyspnea on exertion R06.09 Dyspnea type: dyspnea on exertion Mild intermittent asthma without complication J45.20 Asthma complication type: uncomplicated Asthma persistence: intermittent Asthma severity: mild Pulmonary nodules R91.8 FARHAT (obstructive sleep apnea) G47.33 ILD (interstitial lung disease) J84.9 Subacute pansinusitis J01.40 Sinusitis location: pansinusitis Chronicity: subacute Pulmonary hypertension I27.20 Time Spent (min) 17
--- OUTSIDE RECORDS SUMMARY | 2024-11-11 11:26 | XMS_ITS | Clinical Summary ---
Author Organization [facility] 299 [facility] Address [address] [place] [address] Phone Care Team Providers Care Care Director Rn Name Role Phone Alden Will Primary Care Provider Allergies Active Allergy Reactions Criticality Noted Date Comments Citalopram 10/04/2024 Paba Hives 10/04/2024 Medications valsartan (DIOVAN) 40 mg tablet Take 2 tablets (80 mg total) by mouth. 1 Active verapamil ER (VERELAN PM) 100 mg 24 hr capsule Take 1 capsule (100 mg total) by mouth 1 (one) time each day. 9 Active [place] Thyroid 30 mg tablet Take 1 tablet [...] Take 1 tablet by mouth. 2 Active mometasone-formote rol (Dulera) 50-5 mcg/actuation HFA aerosol inhaler inhaler [...] 26 Active Creon 36,000-114,000- 180,000 unit capsule,delayed release(DR/EC)Khalida cations:Pancreatic insufficiency Use 2 capsules in the mouth or throat 5 (five) times a day. TAKE 2 CAPSULES BY MOUTH BEFORE MEALS AND SNACKS FIVE TIMES A DAY 300 capsule 11 10/06/19 26 Active Active Problems Problem Noted Date Diagnosed Date Pancreatic insufficiency 10/04/2024 Irritable bowel syndrome with constipation 10/04 Gastroesophageal reflux disease without esophagi tis 10/04/2024 Encounters Date Type Department Care Team Description 10/05/2024 Telephone Gastroenterology - [address] [phone] Ismale White MD 10/04/2024 11:00 AM EDT Office Visit Gastroenterology - [address] [phone] Ismael White MD Pancreatic insufficiency (Primary Dx) [...] age to complete this topic Insurance MEDICARE [employer] Care Teams Care Director Rn Relationship Specialty Start Date End Date Alden Will PA [address] [place] [address] PCP - General Internal Medicine 09/19/24
--- OUTSIDE RECORDS SUMMARY | 2024-11-11 11:26 | XMS_ITS | Data Portability ---
Author Organization [place] [facility], Allergy Address [address] [address] Care Team Providers Care Glass Bulb Machine Adjuster Name Role Phone DEYANIRA STANFORD Primary Care Provider [phone] Assessment Encounter Date Assessment Date Assessment LastModified by Organization Details LastModified Time 06/01/2024 06/01/2024 06/01/2024 Patient is here as a previous patient to discuss new amplification. Her current Widex hearing aids are over 6 years old. She has a hearing aid benefit thru [employer]. Last year, she tried aids at [facility] for 6 months and then returned them [...] small open domes. R/s Nata Thornton MA [facility] tyler Not available 06/01/2024 16:41:18 [...] is an experienced user. SHE HAS THE CLINICAL SUPPORT SPECIALIST AND INSTRUCTIONS THAT CAME WITH HER ORDER. [...] rescheduled for 2 weeks. Nata Alejandro HIDALGO [facility] [email or web address] Not available 06/22/2024 16:47:24 [...] Time Benign paroxysma l positiona l vertigo [id number] Active 2018 Benign paroxysma l vertigo, right ear; Note: Date Diagnosed : 07/23/2018 4:07 PM (H81.11) Not Available [facility] 4 03:20:01 Dizziness and giddiness 144292289 Active 2018 Dizziness and giddiness ; Note: Date Diagnosed : 07/23/2018 3:40 PM (R42) Not Available [facility] 4 03:20:02 Sensorine ural hearing loss of bilateral ears 763931006 Active 2015 Sensorine ural HL, bilateral ; Note: Date Diagnosed : 05/12/2014 3:16 PM (389.18) ; Start Date : 4 Sensori neural hearing loss, bilateral ; Note: Date Diagnosed : 11/20/2015 12:02 PM (H90.3) Not Available [facility] 4 03:20:01 Essential hypertens ion 95845874 Active 2018 Essential (primary) hypertens ion; Note: Date Diagnosed : 07/23/2018 4:07 PM (I10) Not Available [facility] 4 03:20:02 Impacted cerumen in right ear [id number] 09140 Active 2015 Impacted cerumen, right ear; Note: Date Diagnosed : 6 4:31 PM (H61.21) Not Available [facility] 4 03:20:02 Finding of sensation of musculosk eletal structure of neck 520809631 Active 2023 CARLOS JC MD [address] [facility],[place] [address], [place], [address] , [facility] - [facility] 4 10:25:55 Problem Notes None recorded. Procedures Surgical History Date Name Laterality Status Provider Name and Address Organization Details Recorded Time 05/11/20 24 Comp Audio with Tymps - 27783 & 64822 completed NATA THORNTON MA, CCC-A [address] [facility],[place] [address], [place], [address], [facility] - [facility] 05/11/2024 09:55:22 thyroidectomy completed Keven Mandujano MA - [facility] 05/11/2024 10:17:41 hernia repair completed Keven Mandujano [place] - [facility] 05/11/2024 10:17:51 Kidney Stone Removal [facility] [place] [facility] 05/11/2024 10:18:02 Imaging Results Imaging Date [...] Not Available Not Available No t Available Schofield Thyroid 15 mg tablet 2015 active Medicati on ID: [id number] D uration Value: 30 Brand Name: Betty Thyroid Send Method: E-Prescr ibed Sub s Allowed: subs OK Medic ationGen ericName : Schofield Thyroid Not Available Not Available Not Available meclizine 25 mg tablet active Not Available Not Available Not Available verapamil ER (PM) 100 [address] capsule [address] pellet CT,ext.re lease TAKE 1 CAPSULE BY MOUTH EVERY DAY FOR 90 DAYS active Not Available Not Available No t Available vitamin B complex tablet 2015 active Medicati on ID: [id number] B rand Name: vitamin B complex Send Method: E-Prescr ibed Sub s Allowed: subs OK Medic ationGen ericName : vitamin B complex Not Available Not Available Not Available montel[facility] st 10 mg tablet TAKE 1 TABLET BY MOUTH AT BEDTIME active Not Available Not Available No t Available Schofield Thyroid 30 mg tablet TAKE 1 TABLET BY MOUTH EVERY DAY FOR 90 DAYS active Not Available Not Available No t Available estradiol 0.01% (0.1 mg/gram) vaginal cream INSERT 1 GRAM VAGINALL Y TWICE WEEKLY active Not Available Not Available No t Available verapamil 80 mg tablet 05/11 completed Medicati on ID: [id number] D uration Value: 90 Brand Name: vereleonorami l Send Method: E-Prescr ibed Sub s Allowed: subs OK Medic ationGen ericName : verapami l Not Available Not Available Not Available Vitamin C 500 mg capsule,e xtended release 2015 active Medicati on ID: [id number] B rand Name: Vitamin C Send Method: [...] SNOMED-CT Code Diagnosis ICD10 Code Diagnosis Note [id number] CARLOS JC MD [facility] [address] [address] 05/11/2024 09:14:43 05/11/2024 10:29:46 Finding of sensation of musculoskeletal structure of neck 106610311 M54.2 Sensorineu ral hearing loss of bilateral ears 121180142 H90.3 [id number] NATA THORNTON MA, CCC-A [facility] [address] [address] 05/11/2024 09:14:43 05/11/2024 10:29:46 Sensorineural hearing loss of bilateral ears [id number] H90.3 Audiologic al evaluation results: Right ear: [...] frequency low frequency mid frequency cookie bite owne curve SNHL #}} {{with* se nsorineura l [...] Cou ld not maintain a hermetic seal}} [id number] NATA THORNTON MA, CCC-A [facility] [place] [address] [facility] 100 [place] [address] 06/01/2024 12:45:59 06/03/2024 07:30:04 Sensorineural hearing loss of bilateral ears 162762729 H90.3 Audiologic al evaluation results: Right ear: [...] Cou ld not maintain a hermetic seal}} 11148 NATA THORNTON MA, CCC-A [facility] [place] [address] [facility],[place] 100 [place] [address] 06/14/2024 12:46:07 06/15/2024 07:47:41 Sensorineural hearing loss of bilateral ears [id number] H90.3 Audiologic al evaluation results: Right ear: [...] Cou ld not maintain a hermetic seal}} [id number] NATA THORNTON MA, CCC-A [facility] [place] 100 [facility] [address] [place] [address] 06/22/2024 10:59:33 06/23/2024 07:27:18 Sensorineural hearing loss of bilateral ears [id number] H90.3 Audiologic al evaluation results: Right ear: [...] Cou ld not maintain a hermetic seal}} 18334 NATA THORNTON MA, CCC-A [facility] [place] [address] [facility], [place] [address] [place] [address] 07/05/2024 11:55:04 07/07/2024 11:39:54 Sensorineural hearing loss of bilateral ears [id number] H90.3 Audiologic al evaluation results: Right ear: [...] Cou ld not maintain a hermetic seal}} [id number] NATA THORNTON MA, CCC-A [facility] - [address] [place] [address] 07/14/2024 09:55:09 07/18/2024 07:45:19 Sensorineural hearing loss of bilateral ears [id number] H90.3 Audiologic al evaluation results: Right ear: [...] Recorded Advance Directives Directive None Recorded Payers Insurance Date Sequence Insurance Name Policy Number Policy Flynn Covered Member ID Flynn Member ID Guarantor Name 07/14/2024 1 [place]ICARE [place]: [employer] Renée Paris [id number] Renée Paris 07/14/2024 2 [facility] PLAN F (MEDICARE SUPPLEMENT) [id number] Renée Paris [id number] Renée Paris OBGyn Episode No OBEpisode recorded.
== END 2024-11-11 11:26 | disposition home or self-care (01) ==
LOC: HO.HPS 10:54
PROVIDERS: PCP Physician Assistant; Visit Provider Hospitalist
DX: R06.09 Other forms of dyspnea (principal); J45.20 Mild intermittent asthma, uncomplicated; R91.8 Other nonspecific abnormal finding of lung field; G47.33 Obstructive sleep apnea (adult) (pediatric); J84.9 Interstitial pulmonary disease, unspecified; J01.40 Acute pansinusitis, unspecified; I27.20 Pulmonary hypertension, unspecified
CPT/HCPCS: 99214; G2211

== ENCOUNTER → 2024-11-11 10:53 | Outpatient (BNVA) | payer MEDICARE, OTHER, SELFPAY | PROVIDERS: PCP Physician Assistant; Visit Provider Hospitalist | DX: J45.20 Mild intermittent asthma, uncomplicated (principal); J84.9 Interstitial pulmonary disease, unspecified; J01.40 Acute pansinusitis, unspecified; I27.20 Pulmonary hypertension, unspecified; G47.33 Obstructive sleep apnea (adult) (pediatric); R06.09 Other forms of dyspnea; R91.8 Other nonspecific abnormal finding of lung field | CPT/HCPCS: 99212 ==

== ENCOUNTER 2025-03-20 10:57 | Outpatient (AMB) | payer MEDICARE, OTHER, SELFPAY ==
[2025-03-20 11:01] VITALS: BP 148/72; PULSE 85; O2SAT 98; BMI 28.9
--- NOTE | 2025-03-20 11:01 | MHC.OFFVIS ---
Vital Signs 03/20/25 11:01 Height 5 ft 3 in Weight 163 lb BMI 28.9 BP 148/72 H Blood Pressure Location Lt brachial Position Sitting Pulse 85 Pulse Source Pulse Oximeter Pulse Oximetry (%) 98 Oxygen Delivery Method Room Air Intake Visit Reasons: BAUTISTA Allergies ciprofloxacin (From Cipro) Adverse Reaction (Severe, Verified 03/20/25 11:07) Dizziness HPI Comments Details: The patient is an 84-year-old woman with a known history of asthma and also a long history of symptoms of dyspnea. She does have dyspnea on exertion which is moderate severity. Typically worsens when she goes up 1 flight of stairs. She has had extensive workup throughout the years. She has had multiple inhalers as well to try to help with her asthma symptoms. As far as exposures he was exposed to significant amount of mold for. Her life. She has not had any recent allergy testing. In view of her significant dyspnea symptoms the patient did have a workup including CT scan of the chest that she had back in December 2021. I personally reviewed the CT scan demonstrating pulmonary nodules which appear to be inflammatory in nature primarily in the right lower lobe area. In addition to that some degree of lymphadenopathy also was noted in the mediastinum. No evidence of any significant parenchymal lung disease noted or interstitial lung disease to be concerned about or to be able to explain her symptoms. In view of the significant pulmonary nodule in the right lower lobe measuring more than 8 mm in size the patient did undergo a PET scan at [facility]. It appeared that does nodular densities resolve suggesting indeed that was inflammatory process. The patient did have an echocardiogram that was done at [facility]. There may have been some degree of relaxation impairment. During the visit we did go for brief walking oximetry. It was noted patient became significantly dyspneic when her heart rate increased to above 115. her pulse oximeter was stable throughout the ambulation. 03/27/2022 the patient is here for pulmonary follow-up visit. she is here with her daughter. The patient continues to have significant dyspnea with minimal activity. She has been concerned about doing any activity because of the symptoms. Based on her initial evaluation in her significant tachycardia we talked about having her undergo a stress test. We did reach out to her engineer process. depending on that discussion we can always consider a cardiopulmonary exercise study to further address her ongoing symptoms. The patient's echocardiogram did demonstrate some diastolic dysfunction which I believe is playing a role. In addition to that the patient does have some the lying bibasilar scarring that may also may be resulting in some decrease lung compliance. Therefore, I do believe that her dyspnea symptoms may be multifactorial. The patient does have an underlying pulmonary nodule that it measures 8 mm in size in addition to the lymphadenopathy and the bibasilar scarring and therefore she should have a repeat CT scan 6 months from her last imaging study. In addition to that the patient does have underlying sleep apnea. We did review her sleep study. The patient did try CPAP and she did not tolerated whatsoever. Explained to her that indeed if she has evidence of cardiovascular risk factors then revisit in the sleep apnea condition be important in order to properly treat her cardiovascular risk and symptoms. 06/04/2022 the patient is here for a pulmonary follow-up visit. Patient has still the persistent issues with her dyspnea. Even minimal activity. Moderate severity. Although she does describe now that she she is more fatigued. She does complaint of the daytime drowsiness. She brought up the fact that she does have moderate sleep apnea and she could not tolerate the CPAP. She is wondering if she needs to give that another opportunity to see if her symptoms improved. She did follow-up with cardiology and she did undergo a nuclear stress test which is reassuring without any evidence of any ischemia or [employer] cardiac abnormalities to explain her shortness of breath. Again, pulmonary function studies also were reassuring. There also may be a component of deconditioning. The patient may be a good candidate for pulmonary rehabilitation. We also reviewed her CT scan of the chest it appears that she has interval resolution of her pulmonary density. This is reassuring. She has some minimal scarring at the bases but no evidence of any worsening disease. Her blood work was all reassuring as well. She did have a slight elevation the ROBB but her titer is low 1:80. at least compared to her previous CT scan there is no apparent worsening any interstitial lung disease at this time. The patient also complains of nasal congestion and allergies. She has tried fluticasone in the past without any significant help. Will go ahead and place her back some Zyrtec and also small dose of Singulair to make sure she can not tolerated. 08/13/2022 the patient is here for a pulmonary follow-up visit. The patient has been doing relatively well from a respiratory status. She does continue to have her dyspnea. She recently recovered from COVID-19. [id number] severity. The patient has underlying interstitial lung disease and now recovering from COVID. This is resulting the significant dyspnea symptoms. She has had a full cardiac workup which is been reassuring. The patient also is been having issues with sleep apnea. We did repeat her home sleep study in the patient does has a mild degree of sleep apnea. This could be treated with positional therapy as she has her significant apneas when she lays on her back. We talked about different positional therapy devices that she can consider in order for her to sleep on her sides the patient is encouraged about starting pulmonary rehabilitation. This will provide her with relief and conditioning of her ongoing dyspnea symptoms. Also, more recently she started developing significant knee pain. This has been very limiting for her. She did have an ultrasound ruling out DVT specially since he D-dimer was elevated. Her rheumatological workup was slightly abnormal and she is going to follow up with Rheumatology at this time. In the meantime since she is still recovering from COVID I will give her short course of prednisone that will probably help her respiratory status and also indirectly help her knee. 02/11/2023 the patient is here for pulmonary follow-up visit. Overall patient is doing a little better. Still having dyspnea on exertion. Mild to moderate in severity. She did go to a functional medicine specialist. She was diagnosed with chronic Lyme and also adrenal insufficiency. She is currently being evaluated and treated for that. In the meantime the patient has had a cardiac and pulmonary workup without any significant clarity for the symptoms of dyspnea. 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 Patient was supposed to start pulmonary rehab but then developed a knee injury and she could not started. Now she is doing better from the knee injury and do recommend she start the pulmonary rehab at this time. Will go ahead and request pulmonary rehab at [facility] as her preference. We did review her last CT scan of the chest which demonstrated interval improvement of the nodular density. Overall stable. Will talk about further imaging studies in the future. Right now she is also dealing with issues of dizziness. She is looking for the neurologist. 08/13/2023 the patient is here for a pulmonary follow-up visit. Overall the patient has been doing better overall. She has been participating in the pulmonary rehabilitation program and she is found that to be very helpful for her. She is continued to participate even after completing the 8 week program. She is going twice a week now. The patient does have a hard time walking long distances because she does develop some back pain. She did have neck pain and back pain over the fall. She was evaluated [facility] at that point in did have a CTA. The patient did have some evidence of atelectasis although can not rule out pneumonitis/ILD. The patient is requesting inhaler to use. I do believe is a good idea for her to have 1. She also continues with respiratory medicine. I will provide her Dulera that she can start using. I did give him instructions on how to use it appropriately. The patient needs to rinse her mouth after she is she will use the inhaler for now she has any difficulties with it she will call the office. Otherwise she will follow-up in the fall of 2023. 04/14/2024 the patient is here for a pulmonary follow-up visit. The patient overall has been doing okay. She still complains of dyspnea on exertion. 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 She was going to be started on doxycycline. She did have a chest x-ray which we personally reviewed. She does have some degree of scoliosis. This potentially could be contributing to some degree. The patient will undergo repeat pulmonary function studies on her x-ray. In the meantime she is going to continue with current respiratory regimen. The patient does have episodes of waking up short of breath at nighttime. Will request an overnight oximetry to see if she benefits from any nocturnal oxygen supplementation. The patient follow-up in 3-4 months. If she has any issues prior to that she will call for an earlier assessment. 08/15/2024 the patient is here for a pulmonary follow-up visit. Overall she is to continues to have dyspnea on exertion. She is following closely with her chronic Lyme infection. She also complains of sinusitis. She has been having sinusitis now for few weeks. Has been having a lot of pressure and pain around the maxillary area. She tolerates the doxycycline okay. In addition to that she did undergo pulmonary function studies for dyspnea on exertion. Her pulmonary capacity is normal. We also went for brief walking oximetry and she did great except for elevated heart rate. She also has lower extremity edema. Will request an echocardiogram at this time. She also has daytime drowsiness. She carries a diagnosis of sleep apnea. Her [place] score is elevated 11/24. She has a hard time with an in-lab study. Therefore will request a home sleep study at this time. 11/11/2024 the patient is here for pulmonary follow-up visit. Overall she is doing okay she still complains about the same dyspnea on exertion [id number] severity. We did review her echocardiogram demonstrated borderline pulmonary hypertension. Likely that that is a component the factor that is it causing her to have the dyspnea symptoms. Right now her volume status is stable so would not get him recommend any diuresis at this time. The patient did have a sleep study which was a home sleep study which demonstrated no significant sleep apnea. Although I did explain to her the home sleep study sometimes can be limited. In view of the question of pulmonary hypertension and dyspnea she should consider having in-lab sleep study. She will think about it at this time. Her major complaint right now is significant sinusitis sinus pressure and dizziness. She is not responding to the [place] with the counter medications. Will go ahead and start her on a course of doxycycline then did release since she can not tolerate the b.i.d. dosing. If we can not get the extended-release or Dulera release medication then will have to find an alternative. The patient should also try fluticasone nasal spray and Afrin for few days to see if this can open up the nasal passages for allow better drainage. The patient should follow-up with primary care further for the sinusitis issue and she consider ENT if no better. For now she is going to continue with the current respiratory regimen. 03/20/2025 the patient is here for pulmonary follow-up visit. The patient overall has been doing well. Although recently she did have another bout of sinusitis. She feels like she is getting sinusitis every month for the most part. She did respond to all to the doxycycline. She also has a nasal sprays and also she can also use Mucinex as needed for expectorant. Respiratory chase she is doing okay denies any complaints. Sometimes she wants to use the Dulera more than twice a day. I will give her a rescue inhaler for her to use in between. She continues to exercise regularly. The patient overall has been okay except for significant headaches. Go ahead and check a overnight oximetry to assess for hypoxia. She did have a sleep study in the past demonstrating some degree of hypoxia. She may benefit from oxygen at nighttime for supplemental oxygen therapy for nocturnal hypoxia in that case. Will follow-up in 6 months if she has any issues prior to that she will call further recommendations. If she does qualify for oxygen then will start her on the oxygen before the next visit. 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 COVID-19 FARHAT (obstructive sleep apnea) Pulmonary fibrosis Lymphadenopathy Pulmonary nodules Dyspnea Asthma Social History Patient Tobacco Use Status: Never used Tobacco Review of Systems Const Denies chills, Denies fatigue, Denies fever(s), Reports headache(s) and Denies weight gain Eyes Denies itchy eyes ENT Reports dizziness, Reports headache(s), Reports nasal congestion, Reports nasal discharge and Reports sinus pressure Card Denies chest pain, Denies leg edema, Denies lightheadedness, Denies palpitations, Denies dyspnea on exertion, Denies orthopnea and Denies other Resp Denies cough and Denies dyspnea on exertion GI Denies hematochezia and Denies change in stool character Musc Denies abnormal gait, Denies muscle weakness, Denies numbness, Denies radiating pain into limb and Denies tingling Skin/Breast Denies rash Neuro Denies abnormal gait, Reports dizziness, Reports headache(s), Denies numbness and Denies tingling Endo Denies fatigue and Denies palpitations Aller/Immun Denies itchy eyes Physical Exam Vital Signs: Last Vital Signs Pulse 85 03/20/25 11:01 BP 148/72 H 03/20/25 11:01 Pulse Ox 98 03/20/25 11:01 Oxygen Delivery Method Room Air 03/20/25 11:01 BMI result Body Mass Index 28.9 Const General: comfortable HEENT Head: Yes normal to inspection Eyes General: appearance normal, both eyes and all related structures Neck Neck: Yes supple Chest Chest palpation & inspection: normal inspection of the chest Resp Effort & Inspection: normal respiratory effort Auscultation: no crackles and diminished lung sounds Cardio Rate: regular rate Rhythm: regular rhythm Heart sounds: S1 normal heart sound present and S2 normal heart sound present Extrem General: Yes edema Assessment & Plan Assessment & Plan (1) Dyspnea: Code(s): R06.00 - Dyspnea, unspecified Category: Medical Qualifiers: Dyspnea type: dyspnea on exertion Qualified Code(s): R06.09 - Other forms of dyspnea (2) Asthma: Code(s): J45.909 - Unspecified asthma, uncomplicated Category: Medical Qualifiers: Asthma complication type: uncomplicated Asthma persistence: intermittent Asthma severity: mild Qualified Code(s): J45.20 - Mild intermittent asthma, uncomplicated (3) Pulmonary nodules: Code(s): R91.8 - Other nonspecific abnormal finding of lung field Category: Medical (4) FARHAT (obstructive sleep apnea): Code(s): G47.33 - Obstructive sleep apnea (adult) (pediatric) Category: Medical (5) ILD (interstitial lung disease): Comment: stable Code(s): J84.9 - Interstitial pulmonary disease, unspecified Category: Medical (6) Sinusitis: Code(s): J32.9 - Chronic sinusitis, unspecified Category: Medical Qualifiers: Chronicity: subacute Sinusitis location: pansinusitis Qualified Code(s): J01.40 - Acute pansinusitis, unspecified (7) Pulmonary hypertension: Code(s): I27.20 - Pulmonary hypertension, unspecified Category: Medical Plan Recommendations: Dulera as needed start FRANKLYN as needed ECHO +mild pulmonary HTN continue Singulair continue Zyrtec continue fluticasone Afrin x 5 days Doxycycline if worsens overnight oximetry on RA follow-up in 6-8 months Orders: Orders Overnight Pulse Oximetry Today Medications: New albuterol sulfate 90 mcg/actuation 2 inhalations inhalation Q6H PRN 18 grams 12RF shortness of breath or wheezing 30 days J44.9 - Chronic obstructive pulmonary disease, unspecified Refilled doxycycline hyclate 200 mg PO DAILY 14 tabs 0RF 14 days Coding Level of Care Code Est Pt Level 4 (57642) Complex EM visit Add On G2211 Diagnoses Dyspnea on exertion R06.09 Dyspnea type: dyspnea on exertion Mild intermittent asthma without complication J45.20 Asthma complication type: uncomplicated Asthma persistence: intermittent Asthma severity: mild Pulmonary nodules R91.8 FARHAT (obstructive sleep apnea) G47.33 ILD (interstitial lung disease) J84.9 Subacute pansinusitis J01.40 Chronicity: subacute Sinusitis location: pansinusitis Pulmonary hypertension I27.20 Time Spent (min) 16
--- OUTSIDE RECORDS SUMMARY | 2025-03-20 14:44 | XMS_ITS | Clinical Summary ---
Author Organization [facility] Address [address] [place] [phone] Phone Care Team Providers Care Immigration Lawyer Name Role Phone Natalie Bach MD Primary Care Provider [phone] Allergies No known active allergies Medications BIOTIN ORAL 1 tablet Orally Once a day Active Medication-Free Text vitamin c Active b complex vitamins (VITAMINS B COMPLEX) tablet Orally Acti ve Medication-Free Text multivitamin Active pancrelipase, lipase-protease -amylase, (CREON) 24,000-76,000 -120,000 unit CpDR 6 tabs daily Orally Active VERAPAMIL HCL (VERAPAMIL ORAL) 80 mg tablet Orally daily Active Lactobacillus acidophilus Cap Orally Acti ve DULoxetine (CYMBALTA) 20 MG capsule Take 20 mg by mouth 2 (two) times a day. Active coenzyme Q10 200 mg capsule Take 1 capsule by mouth 2 (two) times a day with meals. 7 Active fluticasone-sherri anterol (BREO ELLIPTA) 100-25 mcg/dose DsDv Inhale 1 puff into the lungs daily. 1 each 11 8 Active fluticasone propionate (FLONASE) 50 mcg/actuation nasal spray 1 spray by Nasal route daily. 1 Bottle 5 8 Active Active Problems Problem Noted Date Diagnosed Date Fatigue 09/07/2017 Assessment & Plan (09/07/2017 11:46 AM EST): Most certainly related to underlying fibromyalgia. Can continue CoQ10 given subjective benefit. Chronic rhinitis 09/07/2017 Assessment & Plan (09/07/2017 11:46 AM EST): Recommend increase Flonase to twice daily until symptoms improve, then return to once daily. Continue Neni pot. SOB (shortness of breath) on exertion 09/07/2017 Assessment & Plan (09/07/2017 11:46 AM EST): Clinically stable without clear etiology. She feels may be related to fibromyalgia given waxing and waning course. No benefit from trial of duloxetine given side effects. Prescription for low dose Brio provided with one month voucher to determine if previous trial leads to persistent benefit. Given PFTs with abnormal maximum inspiratory and expiratory pressure measurements yet preserved spirometry, question possible need for breathing retraining. Encourage start with senior yoga. If breathing worsens in the future, would be happy to see again and would consider repeat pulmonary function studies at that time. Family History Medical History Relation Comments Stroke Father 2 Stroke Mother 2 Relation Status Comments Father 1 Father 2 Mother 1 Mother 2 Social History Tobacco Use Types Packs/Day Years Used Date Smoking Tobacco: Never Smokeless Tobacco: Never Education Answer Date Recorded Are you interested in more education? Not on mechelle e 11/09/2022 Are you concerned about learning? Not on file 11/09/2022 No 11/09/2022 No 11/09/2022 Digital Access Answer Date Recorded No 11/30/2022 No 11/30/2022 Reliable internet access at home? Not on file 11/30/2022 Device with a working camera? Not on file Comments Unknown Sex and Gender Information Value Date Recorded Sex Assigned at Not on file Legal Sex Female 6:36 PM EST Gender Identity Not on file Sexual Orientation Not on file Last Filed Vital Signs Vital Sign Reading Time Taken Comments Blood Pressure 163/89 09/07/2017 10:57 AM EST Pulse 73 09/07/2017 10:57 AM EST Temperature 36.2 C (97.2 F) 03/23/2017 11:30 AM EDT Respiratory Rate - - Oxygen Saturation 98% 09/07/2017 10:57 AM EST Inhaled Oxygen Concentration - - Weight 68.5 kg (151 lb) 09/07/2017 10:57 AM EST Height 160 cm (5' 3 ) 03/23/2017 11:30 AM EDT Body Mass Index 26.75 03/23/2017 11:30 AM EDT Plan of Treatment Health Maintenance Due Date Last Done Comments Adult Td,Tdap Booster 1940 DEPRESSION SCREENING 1951 PNEUMOCOCCAL VACCINES (50+ y ears) (1 of 1 - PCV) 1989 ZOSTER VACCINES (1 of 2) 1989 OSTEOPOROSIS SCREENING INITI AL (ONE-TIME) 2004 RSV VACCINE (1 - 1-dose 75+ series) 2014 COVID-19 VACCINE (2 - 2023-2 5 season) 2024 09/13/2020 INFLUENZA VACCINE (#1) 2025 HEPATITIS A VACCINES Aged Out No long er eligible based on patient's age to complete this topic HIB VACCINES Aged Out No longer eligi ble based on patient's age to complete this topic MENINGOCOCCAL VACCINES (ACWY) Aged Out No longer eligible based on patient's age to complete this topic MENINGOCOCCAL VACCINES (B) Aged Out N o longer eligible based on patient's age to complete this topic Medical Devices Not on file Insurance MEDICARE PART A & B MEDICARE PART A & B MEDICARE PART A & B MEDICARE PART A & B MEDICARE PART A & B MEDICARE PART A & B MEDICARE PART A & B MEDICARE PART A & B MEDICARE PART A & B Care Teams Immigration Lawyer Relationship Specialty Start Date End Date Natalie Bach MD [address] [place] [id number] PCP - General Internal Medicine 06/08/17 Additional Source Comments The information contained in this document represents components of the legal health record. It is not the complete legal health record.[facility]
--- OUTSIDE RECORDS SUMMARY | 2025-03-20 14:44 | XMS_ITS | Clinical Summary ---
Author Organization [facility] [address] [facility] Address [address] [place] [address] Phone Care Team Providers Care Pickling Machine Operator Name Role Phone Alden Will Primary Care Provider [phone] Allergies Active Allergy Reactions Criticality Noted Date Comments Citalopram 10/04/2024 Paba Hives 10/04/2024 Medications valsartan (DIOVAN) 40 mg tablet Take 2 tablets (80 mg total) by mouth. 1 Active verapamil ER (VERELAN PM) 100 mg 24 hr capsule Take 1 capsule (100 mg total) by mouth 1 (one) time each day. 9 Active [place] Thyroid 30 mg tablet Take 1 tablet [...] 300 capsule 11 5 10/06/19 26 Active Active Problems Problem Noted Date Diagnosed Date Pancreatic insufficiency 10/04/2024 Irritable bowel syndrome with constipation 10/04 Gastroesophageal reflux disease without esophagi tis 10/04/2024 Social History Tobacco Use Types Packs/Day Years [...] 2) 1989 Cholesterol Screening (Lipid Panel) 06/03/2022 Falls Risk Assessment 06/03/2022 Medicare Annual Wellness Visit 06/03/2022 Osteoporosis Screening (Bone Density Screening) 06/03/2022 Social Influencers of Health Screening 06/03/2022 Hypertension/CHF/CAD Annual BMP Blood Test 06/06/2024 Depression Screening 07/06/2024 COVID-19 Vaccine (2024-2 6 season) 2025 05/27/2021, 10/04/2020, 09/13/2020 Influenza Vaccine (#1) 2025 RSV Immunization Adult Patients Completed 07/09/2023 [...] age to complete this topic Insurance MEDICARE [facility] Care Teams Pickling Machine Operator Relationship Specialty Start Date End Date Alden Will PA [address] [place] [address] PCP - General Internal Medicine 09/19/24
== END 2025-03-20 11:32 | disposition home or self-care (01) ==
LOC: HO.HPS 10:57
PROVIDERS: PCP Physician Assistant; Visit Provider Hospitalist
DX: R06.09 Other forms of dyspnea (principal); J45.20 Mild intermittent asthma, uncomplicated; R91.8 Other nonspecific abnormal finding of lung field; G47.33 Obstructive sleep apnea (adult) (pediatric); J84.9 Interstitial pulmonary disease, unspecified; J01.40 Acute pansinusitis, unspecified; I27.20 Pulmonary hypertension, unspecified
CPT/HCPCS: 99214; G2211

== ENCOUNTER → 2025-03-20 10:57 | Outpatient (BNVA) | payer MEDICARE, OTHER, SELFPAY | PROVIDERS: PCP Physician Assistant; Visit Provider Hospitalist | DX: J45.20 Mild intermittent asthma, uncomplicated (principal); R06.09 Other forms of dyspnea; R91.8 Other nonspecific abnormal finding of lung field; G47.33 Obstructive sleep apnea (adult) (pediatric); J01.40 Acute pansinusitis, unspecified; I27.20 Pulmonary hypertension, unspecified | CPT/HCPCS: 99212 ==